=== PATIENT | male | born 1935 | race Caucasian/White ===

== ENCOUNTER 2017-09-07 09:19 | Outpatient (CLI) | payer MEDICARE ==
[2017-09-07] MEDS ORDERED: ISOVUE-370 76%-LOCM 1 ML ONE (13:26)
== END 2017-09-07 09:20 | disposition home or self-care (01) ==
LOC: BICCT 09:19
PROVIDERS: ATTEND Internal Medicine Cardiovascular Disease
DX: I71.9 Aortic aneurysm of unspecified site, without rupture (principal)
CPT/HCPCS: 71275; 82565

== ENCOUNTER 2018-01-31 17:24 | Inpatient (IN) | payer MEDICARE ==
[2018-01-31] MEDS ORDERED: Morphine 2 MG/ML SYRINGE ONE (18:34)
[2018-01-31] MEDS ORDERED: Ketorolac Tromethamine 30 MG/ML VIAL ONE (18:35)
[2018-01-31 18:51] LABS: #Lymphocytes 1.3 thou/uL (1.20-3.40); #Monocytes 0.7 thou/uL (0.11-0.59); #Neutrophils 9.4 thou/uL (1.40-6.50); %Eosinophils 0.2 % (0.0-10.0); %Monocytes 6.5 % (0.0-10.0); %Neutrophils 82.3 % (42.0-75.0); Hemoglobin 13.7 g/dL (14.0-18.0); Mean Corpuscular HGB CONC 34.7 g/dL (32.0-36.0); Mean Corpuscular Hemoglobin 33.3 pg (27.0-31.0); Mean Platelet Volume 6.9 fL (7.4-10.4); Platelet Count 188 thou/uL (130-400); RBC Distribution Width 11.8 % (11.5-14.5); White Blood Cell (WBC) Count 11.4 thou/uL (4.8-10.8)
[2018-01-31 19:00] LABS: INR-International Normal Ratio 1.2; PTT 35.8 SEC (22.9-36.1); Prothrombin Time 14.8 SEC (12.0-14.7)
[2018-01-31 19:08] LABS: ALT (SGPT) 19 U/L (8-55); AST (SGOT) 23 U/L (5-34); Alkaline Phosphatase 52 U/L (40-150); Anion Gap 10 mmol/L (10-20); BUN (Urea Nitrogen) 17 mg/dL (8.4-25.7); Bilirubin, Total 0.4 mg/dL (0.2-1.2); Calc. Creatinine Clearance 0 mL/min (70-130); Calcium 9.8 mg/dL (7.8-10.44); Carbon Dioxide 23 mmol/L (23-31); Chloride 108 mmol/L (98-107); Estimated GFR-MDRD 50; Globulin 2.7 g/dL (2.4-3.5); Glucose 109 mg/dL (83-110); Protein, Total 6.7 g/dL (5.8-8.1); Sodium 137 mmol/L (136-145)
--- NOTE | 2018-01-31 19:20 | RAD ---
LEFT HIP TWO VIEWS: 01/31/18 HISTORY: Fell with left hip pain. There is a left femoral neck fracture which is more of a subcapital type fracture. The bones appear d emineralized. There is some arthritic changes of the hip. IMPRESSION: Left femoral neck fracture. POS: SELMA
--- NOTE | 2018-01-31 19:21 | RAD ---
AP PELVIS: 01/31/18 HISTORY: Tripped and fell. The bones are demineralized. There are arthritic changes of the lower lumbar spine. The pelvic ring i s intact without evidence of fracture. There is a left femoral neck fracture present which is essenti ally nondisplaced. IMPRESSION: Left femoral neck fracture. POS: CAS
--- NOTE | 2018-01-31 19:29 | RAD ---
PORTABLE CHEST: 01/31/18 HISTORY: Tripped and fell. Left sided pain. Heart size is enlarged. The bones are demineralized. The lungs shows some chronic change. No infiltra melissa. No rib fractures. IMPRESSION: Cardiomegaly. POS: CAS
[2018-01-31] MEDS ORDERED: HYDROcodone/Acetaminophen 5/325 mg Tablet ONE (21:06)
[2018-01-31] MEDS ORDERED: Acetaminophen 325 MG TAB ONE ×2 (21:06→21:11)
[2018-01-31] MEDS ORDERED: traMADol HCl 50 MG TAB ONE (21:06)
[2018-01-31] MEDS ORDERED: Ondansetron PF 4 MG/2 ML Vial IVP PRN (21:12)
[2018-01-31] MEDS ORDERED: Dextrose 5% in Water 1,000 ML IV PRN (21:12)
[2018-01-31] MEDS ORDERED: HYDROcodone/Acetaminophen 10/325 mg Tablet PO PRN (21:12)
[2018-01-31] MEDS ORDERED: Dextrose 50% Abboject 50 ML SYRINGE SLOW IVP PRN (21:12)
[2018-01-31] MEDS ORDERED: traMADol HCl 50 MG TAB PO PRN (21:16)
[2018-01-31] MEDS: Sodium Chloride 0.9% 1,000 ML IV SCH (21:56)
[2018-01-31] MEDS: Morphine 4 MG/ML VIAL SLOW IVP PRN (21:56)
[2018-01-31] MEDS: traMADol HCl 50 MG TAB PO SCH (22:22)
[2018-01-31] MEDS: Acetaminophen 325 MG TAB PO SCH (22:22)
[2018-01-31 22:29] VITALS: BMI 29.5
--- NOTE | 2018-01-31 23:36 | HP ---
Referred by Dr. Michelet Quiñones in the emergency department. CONSULTING ORTHOPEDIST: Steve Garsia MD TRAUMA ATTENDING: Suzanne Martínez MD REASON FOR ADMISSION: Left femoral neck fracture. HISTORY OF PRESENT ILLNESS: Mr. Barbosa is an 82-year-old male who follows for Cardiology with Dr. Michael Prakash and primary care doctor, Dr. Michael Montgomery with a past medical history of intermittent atrial fibrillation, hyperlipidemia, hypothyroidism, and osteoarthritis, who was brought in by EMS today after a mechanical fall off the bottom rungs of a ladder, falling on to a hard sidewalk on his left side at home. The patient had an onset of left hip pain. EMS was called. He is anticoagulated on Eliquis, last dose was early this morning, but denies hitting his head, denies any loss of consciousness, denies any neck pain. The patient was found to have a left femoral neck fracture. His only complaint is the left hip pain. Dr. Garsia was consulted for Orthopedics and planned for operative repair in the morning. The patient has been given 2 mg of morphine, a total of 100 mcg of fentanyl and lab work was reviewed. He has a slight bump in his creatinine; however, his creatinine was on the high normal side on previous visits here. The patient denies any chest pain. No shortness of air. No nausea. No vomiting. No recent fever. Did not get dizzy prior to the fall, states that he missed his last step. I evaluated Mr. Barbosa in the emergency department at the bedside with his . Again, states mechanical fall happened approximately 1430 hours today. The patient is in slight pain, but only complains of the hip pain. I reviewed his records, imaging, and laboratory data from today. Of note, he did have Cardiology clearance in August of this year for a procedure at [facility] to evaluate and was cleared at that time. REVIEW OF SYSTEMS: Pertinent positives and negatives per the HPI. Otherwise, is regarded as negative. PAST MEDICAL HISTORY: 1. Intermittent atrial fibrillation. 2. Hyperlipidemia. 3. Hypothyroidism. 4. Small skin cancer about the face. 5. Osteoarthritis. PAST SURGICAL HISTORY: 1. Skin cancer excision about the right nares. 2. Cholecystectomy. 3. Appendectomy. MEDICATIONS: 1. Eliquis 5 mg. 2. Cardizem 360 mg ER. 3. Crestor 5 mg daily. 4. Finasteride 5 mg daily. 5. Synthroid 25 mcg daily. SOCIAL HISTORY: The patient is a former smoker, quitting in 1974 with no history of COPD. Lives in [place] with his . Socially drinks alcohol, but has never withdrawn and denies any illicit drugs. 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 ALLERGIES: HE HAS NO KNOWN DRUG ALLERGIES. FAMILY HISTORY: Significant for CVA, causing of his father at age 67. His mother of old age at 96 years old. PHYSICAL EXAMINATION: VITAL SIGNS: Temperature is 98.2, blood pressure is 149/77, heart rate is 64, respiratory rate is 18, and he is saturating 94% on room air. GENERAL: He is an 82-year-old male, sitting up in bed, in no acute distress. Nontoxic appearing. HEENT: Normocephalic and atraumatic. Trachea is midline. No JVD is appreciated. Pupils are equal and midline. RESPIRATORY: Equal rise and fall bilateral. Breath sounds are clear to auscultation in upper and lower bilaterally. CARDIOVASCULAR: Regular rate and rhythm. No murmurs appreciated. Strong pulses. Trace edema about the ankles, only nonpitting. ABDOMEN: Soft and nontender. PELVIS: Stable. Does have left hip pain noted. MUSCULOSKELETAL: He is able to move all of his extremities, had sensation noted in all extremities, pain about the left hip. NEURO: Alert and oriented to person, place, time, and event. No gross deficits are appreciated. Again, denies headache or loss of consciousness. SKIN: [place], warm and dry. DIAGNOSTIC DATA: A pelvis x-ray shows a left femoral neck fracture, a hip x-ray shows a left femoral neck fracture. Chest x-ray shows cardiomegaly without other infiltrates. LABORATORY DATA: From today, white blood cell count 11.4, platelets are 188, hemoglobin and hematocrit 13.7 and 39.3 respectively, slight leftward shift. PT is 14.8, INR is 1.2, and aPTT is 35.8. Chemistry; sodium is 137, potassium is 4.0, chloride is 108, CO2 is 23, BUN is 17, creatinine is 1.35, calcium is 9.8, glucose is 109, total bilirubin is 0.4, AST and ALT are 23 and 19 respectively, alkaline phosphatase is 52. An EKG shows a sinus rhythm at the rate of 65 with a left axis deviation, does have Q-waves noted in inferior waves, low voltage, no STEMI and intervals are okay. ASSESSMENT: 1. Left femoral neck fracture. 2. History of atrial fibrillation, on anticoagulation. 3. Acute traumatic pain. 4. Chronic kidney disease. 5. History of hyperlipidemia, hypothyroidism, and osteoarthritis. PLAN: 1. Admit to the surgery campos. 2. Pain control as needed. 3. Trial of bowel regimen. 4. Orthopedics has been consulted. Plan for operative repair tomorrow. 5. Hold Eliquis. His last dose was early in the morning on 01/31. 6. Continue Cardizem daily. 7. Continue Synthroid and Crestor. 8. N.p.o. after midnight, at which time, we will provide gentle fluids at 60 mL per hour for euvolemia for operative repair. 9. Diet, n.p.o except for medications after midnight. 10. Activity is bed rest until after surgery. 11. Full code. 12. Access of peripheral IVs. 13. Prophylaxis will be renally-dosed famotidine and SCDs, holding Eliquis for operative procedure. 14. Disposition is surgery campos. I have updated Mr. Barbosa at the bedside, answered all questions of himself and his . Orthopedics has been consulted and seen the patient in the emergency department and coordinated the care with the emergency department and this plan can be updated as needed. Job ID: [id number]
--- NOTE | 2018-02-01 02:42 | CON ---
DATE OF CONSULTATION: 01/31/2018 CHIEF COMPLAINT: Left hip pain. HISTORY OF PRESENT ILLNESS: Mr. Barbosa is an 82-year-old male, who was working on his house today, cleaning out gutters. He was on a ladder. Unfortunately, he lost his balance and fell. He landed on his left side. He had pain in the hip. He was unable to ambulate. His found him in the yard. He was taken to the emergency department by EMS. X-rays have demonstrated a femoral neck fracture. Orthopedics was consulted. The patient is currently resting comfortably. No acute distress. He is having pain in the left hip, but controlled at rest. No other injuries have been identified. He has been stable. PAST MEDICAL HISTORY: Positive for cardiac arrhythmia including atrial fibrillation. He reports he is no longer in atrial fibrillation however, previous hypothyroidism, GERD, hypertension. PAST SURGICAL HISTORY: Includes appendectomy, cholecystectomy, tonsillectomy, previous cardiac catheterization. PSYCHIATRIC HISTORY: Negative. SOCIAL HISTORY: The patient drinks alcohol occasionally. No smoking. No drug use. ALLERGIES: NO KNOWN DRUG ALLERGIES. MEDICATIONS: Include, 1. Eliquis, which he took early this morning. 2. Crestor. 3. Pantoprazole. 4. Diltiazem. 5. Finasteride. 6. Levothyroxine. IMAGING DATA: X-rays of the pelvis and left hip demonstrated displaced femoral neck fracture, which is acute. PHYSICAL EXAMINATION: VITAL SIGNS: The patient's vital signs are stable. Blood pressure is 146/56, pulse is 65, respiratory rate is 16, and temperature is 98.2. GENERAL: He is alert, lying supine, in no apparent distress. HEENT: Normocephalic and atraumatic. RESPIRATORY: Breathing comfortably. ABDOMEN: Soft, nontender, and nondistended. CARDIOVASCULAR: Pulses are palpable and regular peripherally. MUSCULOSKELETAL: The patient's left hip has pain with motion. He is resting in a flexed position. He is able to flex and extend the foot and ankle. He has a palpable dorsalis pedis pulse. Sensation is intact in the foot and ankle. IMPRESSION: Left femoral neck fracture in an elderly male. PLAN: At this point, the patient will be admitted to the hospital. He will need preoperative medical optimization. We will plan for surgical intervention tomorrow. I have reviewed risks and benefits with him. He wants to proceed with hemiarthroplasty of the hip. Goal of surgery is early mobilization to prevent complications of prolonged bedrest. He is aware of instability, infection, never or vascular injury, DVT, and others. We will restart his Eliquis postoperatively. He will have pain control tonight. He will have mechanical DVT prophylaxis as well as antibiotic prophylaxis. N.p.o. after midnight. Job ID: [id number]
[2018-02-01] MEDS: Acetaminophen 325 MG TAB PO SCH ×5 (04:31→20:46)
[2018-02-01] MEDS: traMADol HCl 50 MG TAB PO SCH ×5 (04:31→20:47)
[2018-02-01] MEDS: Morphine 4 MG/ML VIAL SLOW IVP PRN ×2 (04:42→09:58)
[2018-02-01] MEDS: Levothyroxine Sodium 25 MCG TAB PO SCH (05:07)
[2018-02-01 06:17] LABS: #Eosinphils 0.1 thou/uL (0.0-0.7); #Lymphocytes 1.2 thou/uL (1.20-3.40); #Monocytes 0.7 thou/uL (0.11-0.59); #Neutrophils 6.2 thou/uL (1.40-6.50); %Basophils 0.3 % (0.0-1.0); %Eosinophils 1.3 % (0.0-10.0); %Lymphocytes 14.6 % (21.0-51.0); %Monocytes 8.6 % (0.0-10.0); %Neutrophils 75.2 % (42.0-75.0); Hemoglobin 12.7 g/dL (14.0-18.0); Mean Corpuscular HGB CONC 34.9 g/dL (32.0-36.0); Mean Corpuscular Hemoglobin 33.4 pg (27.0-31.0); Mean Corpuscular Volume 95.8 fL (78.0-98.0); Mean Platelet Volume 6.8 fL (7.4-10.4); Platelet Count 164 thou/uL (130-400); RBC Distribution Width 11.8 % (11.5-14.5); Red Blood Cell (RBC) Count 3.81 mill/uL (4.70-6.10); White Blood Cell (WBC) Count 8.3 thou/uL (4.8-10.8)
[2018-02-01 06:37] LABS: Anion Gap 10 mmol/L (10-20); BUN (Urea Nitrogen) 15 mg/dL (8.4-25.7); Calc. Creatinine Clearance 75 mL/min (70-130); Calcium 9.3 mg/dL (7.8-10.44); Carbon Dioxide 25 mmol/L (23-31); Chloride 106 mmol/L (98-107); Estimated GFR-MDRD 63; Glucose 103 mg/dL (83-110); Potassium 3.9 mmol/L (3.5-5.1); Sodium 137 mmol/L (136-145)
[2018-02-01] MEDS ORDERED: Bupivacaine HCl 0.5%/Epinephrine 1:200,000/PF 30 ml Vial ONE (11:24)
[2018-02-01] MEDS ORDERED: Lidocaine 1% PF 5 ML VIAL ONE (11:36)
[2018-02-01] MEDS ORDERED: Glycopyrrolate 0.2 MG/ML 5 ML SYRINGE ONE (11:36)
[2018-02-01] MEDS ORDERED: PHENYLEPHRINE-NS 100 MCG/ML 10 ML SYRINGE ONE (11:36)
[2018-02-01] MEDS ORDERED: PROPOFOL 200 MG/20 ML VIAL ONE (11:36)
[2018-02-01] MEDS ORDERED: Ondansetron PF 4 MG/2 ML Vial ONE (11:36)
[2018-02-01] MEDS ORDERED: CEFAZOLIN/Water 2 GM/20 ML SYRINGE SLOW IVP SCH (12:00)
[2018-02-01] MEDS ORDERED: CEFAZOLIN 2 GM/50 ML-DEXTROSE 2 GM in Premix Bag 1 BAG IVPB SCH (12:00)
--- NOTE | 2018-02-01 12:26 | PRG ---
DATE OF SERVICE: 02/01/2018 SUBJECTIVE: The patient is resting comfortably in his bed this morning and is n.p.o. for possibility of surgery later today. The patient has reported good pain control and has no complaints at this time. No fevers or chills or any complaints, otherwise. OBJECTIVE: VITAL SIGNS: Blood pressure 165/77, pulse is 70, respiration rate 20, O2 saturation 94 on room air, and temperature 98.6. GENERAL: Alert and awake. No acute distress. HEENT: EOMI. Moist mucosal membranes. NECK: Trachea midline. RESPIRATORY: Equal chest rise. No cyanosis. CARDIOVASCULAR: No edema. Regular rate. NEUROLOGIC: No acute focal deficits. LABORATORY DATA: White blood cell count 8.3, hemoglobin 12.7, and hematocrit 36.5. Chemistries; sodium 137, potassium 3.9, BUN 15, and creatinine 1.11. ASSESSMENT: 1. Left femoral neck fracture. 2. History of atrial fibrillation, on anticoagulation. Last dose of Eliquis was yesterday morning. 3. Acute traumatic pain. 4. Chronic kidney disease. 5. History of hyperlipidemia, hypothyroidism, and osteoarthritis. PLAN: 1. Continue pain control. Plan for operative repair of femoral neck fracture today around lunchtime. 2. Continue Cardizem and other home medications. This patient was seen and evaluated by Dr. Rahman during morning rounds. The patient verbalized understanding and agreement with plan. Job ID: [id number]
[2018-02-01] MEDS ORDERED: Polyethylene Glycol 3350 17 GM Packet PO SCH (14:00)
[2018-02-01] MEDS ORDERED: CEFAZOLIN 2 GM/50 ML BAG ONE (14:11)
[2018-02-01] MEDS ORDERED: Midazolam HCl 2 mg/2 ml Vial ONE (14:22)
[2018-02-01] MEDS ORDERED: Fentanyl 100 MCG/2 ML VIAL ONE ×2 (14:22→14:42)
[2018-02-01] MEDS ORDERED: Senokot 8.6 MG TAB PO SCH (17:00)
[2018-02-01] MEDS: Finasteride 5 MG TAB PO SCH (17:33)
[2018-02-01] MEDS: Polyethylene Glycol 3350 17 GM Packet PO SCH (17:33)
[2018-02-01] MEDS: Famotidine 20 MG TAB PO SCH (17:33)
[2018-02-01] MEDS: Sodium Chloride 0.9% 1,000 ML IV SCH (17:38)
[2018-02-01] MEDS: CEFAZOLIN 2 GM/50 ML BAG IV SCH ×2 (17:40→23:22)
--- NOTE | 2018-02-01 20:48 | RAD ---
LEFT HIP ONE VIEW LATERAL: 02/01/18 HISTORY: Postop. Total hip prosthesis is in good position without evidence of fracture. IMPRESSION: Placement of a total hip prosthesis. POS: SELMA
--- NOTE | 2018-02-01 20:48 | RAD ---
AP PELVIS: 02/01/18 HISTORY: Postop. A left hip prosthesis has been placed which appears in good position. The bones are demineralized. IMPRESSION: Placement of left hip prosthesis. POS: SELMA
[2018-02-01] MEDS ORDERED: Rosuvastatin 5 MG TAB PO SCH (21:00)
--- NOTE | 2018-02-01 23:43 | OP ---
DATE OF PROCEDURE: 02/01/2018 PROCEDURE PERFORMED: Left hip hemiarthroplasty. PREOPERATIVE DIAGNOSIS: Left femoral neck fracture. POSTOPERATIVE DIAGNOSIS: Left femoral neck fracture. COMPLICATIONS: None. ESTIMATED BLOOD LOSS: 150 mL. ANESTHESIA: General plus local. IMPLEMENTATION CONSULTANT: Rogelio Miner PA-C IMPLANTS: DePuy Basic Press-Fit Mower stem size 8, size 57 mm bipolar shell, size +5 femoral head. INDICATIONS: Mr. Barbosa is an 82-year-old male who fell. He fractured his left femoral neck. He was indicated for hemiarthroplasty of the hip to restore function and promote mobilization. Risks were reviewed in detail. He elected to proceed with the operation. Risks to include, infection, pain, scarring, neurovascular injury, DVT, instability, and others. DESCRIPTION OF PROCEDURE: Mr. Barbosa was identified in the preoperative holding area. His correct extremity was marked. He was carried to the operating room. He was positioned supine. General anesthesia was induced. A multidisciplinary time-out was performed. The left lower extremity was prepped and draped in sterile fashion. We began the procedure with posterior approach to the hip. We dissected down through the subcutaneous tissues. The fascia was split. We opened the fascia and evaluated the short external rotators. These were subperiosteally divided from the proximal femur. We then performed a capsulotomy. At this point, we dislocated the femoral head. We removed the broken fragments in the femoral head. We performed a new osteotomy in the femoral neck. At this point, we began preparation of the proximal femur. We entered the intramedullary canal. We then reamed and broached up to a size 8; this gave a good stable fit. At this point, after through irrigation, we trialed. We decided on a +5, 57 mm bipolar shell. This gave good stability throughout the range of motion and equal leg lengths. At this point, we removed our trial components. We thoroughly irrigated with copious lavage. We then placed our final implants and reduced the hip once more. Again after checking stability, we began closure. We closed the deep tissues with #5 Ethibond suture, followed by #2 Vicryl suture, 2-0 and andrea for the skin. A sterile dressing was applied. Job ID: [id number]
[2018-02-02] MEDS: traMADol HCl 50 MG TAB PO SCH ×4 (04:08→21:40)
[2018-02-02] MEDS: Acetaminophen 325 MG TAB PO SCH ×4 (04:08→21:40)
[2018-02-02 06:01] LABS: Hemoglobin 11.5 g/dL (14.0-18.0); Mean Corpuscular HGB CONC 35.1 g/dL (32.0-36.0); Mean Corpuscular Hemoglobin 33.7 pg (27.0-31.0); Mean Platelet Volume 7.2 fL (7.4-10.4); Platelet Count 146 thou/uL (130-400); RBC Distribution Width 11.8 % (11.5-14.5); Red Blood Cell (RBC) Count 3.42 mill/uL (4.70-6.10); White Blood Cell (WBC) Count 10.3 thou/uL (4.8-10.8)
[2018-02-02] MEDS: Levothyroxine Sodium 25 MCG TAB PO SCH (06:29)
[2018-02-02] MEDS: Senokot 8.6 MG TAB PO SCH ×2 (09:11→21:39)
[2018-02-02] MEDS: Finasteride 5 MG TAB PO SCH (09:12)
[2018-02-02] MEDS: Famotidine 20 MG TAB PO SCH (09:12)
[2018-02-02] MEDS: Glycerin Adult Supp. (12 ct jar) PR SCH (09:14)
[2018-02-02] MEDS: Polyethylene Glycol 3350 17 GM Packet PO SCH (14:59)
--- NOTE | 2018-02-02 17:08 | PRG ---
DATE OF SERVICE: 02/02/2018 SUBJECTIVE: The patient is hospital day 2 mechanical fall. Postop day 1 hemiarthroplasty of the left hip. The patient is resting in bed. Reports feeling tired, but easily arousable The patient reports good pain control and no other complaints at this time. He did have urinary retention overnight and resolved with an in and out cath. The patient reports not having a bowel movement since hospital stay. The patient did participate in physical therapy and was able to sit up on the side of the bed without any difficulty. OBJECTIVE: VITAL SIGNS: Blood pressure 145/81, pulse 98, respirations 16, SpO2 95% on 2 L nasal cannula, temperature 98.3. GENERAL: The patient is awake, alert, in no distress. RESPIRATORY: With equal chest rise. No respiratory distress. No cyanosis. CARDIOVASCULAR: No edema. Regular rate. EXTREMITIES: The patient moves all extremities. NEUROLOGIC: There are no acute focal deficits. LABORATORY DATA: WBC 10.3, RBC 3.42, hemoglobin of 11.5, hematocrit 32.9. ASSESSMENT: 1. Mechanism of injury, status post mechanical fall from a ladder at the lowest level. 2. Left femoral neck fracture, status post left hemiarthroplasty. 3. History of atrial fibrillation, on anticoagulation at home, last dose was 2 days ago before surgery. 4. Acute traumatic pain. 5. Urinary retention with the history of benign prostatic hyperplasia. 6. History of hyperlipidemia, hyperthyroidism, and osteoarthritis. 7. Chronic kidney disease. PLAN: 1. Continue pain control. 2. Continue PT/OT. We will restart all of his home medications. We will restart his Eliquis per Ortho tomorrow. Discontinue IV fluids and keep the patient saline locked. We will restart home medications for his BPH. discharge to rehab tomorrow. Continue bowel regimen and pain regimen. The patient was discussed with attending surgeon. Job ID: [id number] [facility]ITAL[facility]go[facility]
[2018-02-02] MEDS ORDERED: Rosuvastatin 5 MG TAB PO SCH (21:00)
[2018-02-03] MEDS: Glycerin Adult Supp. (12 ct jar) PR SCH (02:07)
[2018-02-03] MEDS: traMADol HCl 50 MG TAB PO SCH ×3 (02:34→16:47)
[2018-02-03] MEDS: Acetaminophen 325 MG TAB PO SCH ×3 (02:35→16:48)
[2018-02-03] MEDS ORDERED: Levothyroxine Sodium 25 MCG TAB PO SCH (06:00)
[2018-02-03 06:26] LABS: #Eosinphils 0.1 thou/uL (0.0-0.7); #Monocytes 1.2 thou/uL (0.11-0.59); %Basophils 0.2 % (0.0-1.0); %Eosinophils 1.3 % (0.0-10.0); %Lymphocytes 19.1 % (21.0-51.0); %Monocytes 11.8 % (0.0-10.0); %Neutrophils 67.6 % (42.0-75.0); Hemoglobin 9.8 g/dL (14.0-18.0); Mean Corpuscular HGB CONC 34.5 g/dL (32.0-36.0); Mean Corpuscular Hemoglobin 33.4 pg (27.0-31.0); Mean Corpuscular Volume 96.7 fL (78.0-98.0); Platelet Count 124 thou/uL (130-400); RBC Distribution Width 11.7 % (11.5-14.5); Red Blood Cell (RBC) Count 2.95 mill/uL (4.70-6.10); White Blood Cell (WBC) Count 10.3 thou/uL (4.8-10.8)
[2018-02-03 06:51] LABS: Anion Gap 9 mmol/L (10-20); BUN (Urea Nitrogen) 15 mg/dL (8.4-25.7); Calc. Creatinine Clearance 84 mL/min (70-130); Carbon Dioxide 24 mmol/L (23-31); Chloride 104 mmol/L (98-107); Estimated GFR-MDRD 72; Glucose 113 mg/dL (83-110); Magnesium 2.4 mg/dL (1.6-2.6); Phosphorus 2.1 mg/dL (2.3-4.7); Potassium 3.8 mmol/L (3.5-5.1); Sodium 133 mmol/L (136-145)
[2018-02-03] MEDS ORDERED: Doxazosin 2 MG TAB PO SCH (09:00)
[2018-02-03] MEDS ORDERED: Triamterene/Hydrochlorothiazide 37.5 mg/25 mg Tablet PO SCH (09:00)
[2018-02-03] MEDS ORDERED: Finasteride 5 MG TAB PO SCH (09:00)
[2018-02-03] MEDS: Senokot 8.6 MG TAB PO SCH (09:11)
--- NOTE | 2018-02-03 14:07 | EKG ---
Test Reason : FALL Blood Pressure : / mmHG Vent. Rate : 065 BPM Atrial Rate : 065 BPM P-R Int : 172 ms QRS Dur : 078 ms QT Int : 408 ms P-R-T Axes : -15 -30 -04 degrees QTc Int : 424 ms Normal sinus rhythm Left axis deviation Inferior infarct , age undetermined Abnormal ECG Confirmed by RIVKA RAMIREZ, BOGDAN Mercedes ([id number]), primer expeditor and drier JONA ESPINOSA ([id number]) on 02/03/2018 2:07:37 PM Referred By: Confirmed By:BOGDAN TINEO MD
[2018-02-03 16:28] VITALS: BP 99/60; TEMP 98
[2018-02-03] MEDS: Polyethylene Glycol 3350 17 GM Packet PO SCH (16:48)
--- NOTE | 2018-02-04 18:54 | DIS ---
DATE OF ADMISSION: 01/31/2018 DATE OF DISCHARGE: 02/03/2018 DISCHARGE ATTENDING: Romario Isbell MD. CONSULT: Orthopedic Surgery. PROCEDURES PERFORMED: 1. On 01/31/2018, hip x-ray. Impression, left femoral neck fracture. 2. On 01/31/2018, chest x-ray. Impression, cardiomegaly, no infiltrates, no rib fractures. 3. On 01/31/2018, EKG. Impression, normal sinus rhythm with left axis deviation. 4. On 02/01/2018, left hip 1-view. Impression, placement of a total hip prosthesis. 5. On 02/01/2018, pelvis x-ray. Impression, placement of left hip prosthesis. PRIMARY DIAGNOSIS: Left femoral neck fracture. SECONDARY DIAGNOSES: 1. History of atrial fibrillation, previously on anticoagulation. 2. History of hyperlipidemia. 3. Hypothyroidism. 4. Osteoarthritis. DISCHARGE MEDICATIONS: 1. Acetaminophen 650 mg p.o. q.6 as needed for pain. 2. Eliquis 5 mg p.o. daily. 3. Diltiazem 24-hour extended release 360 mg p.o. daily. 4. Cardura 2 mg p.o. daily. 5. Finasteride 5 mg tablet p.o. daily. 6. Synthroid 25 mcg p.o. daily. 7. Protonix 40 mg p.o. daily. 8. Crestor 5 mg p.o. daily. 9. Silver sulfadiazine 25 g cream apply dermal daily. 10. Ultram 50 mg q.6 hours as needed for pain. 11. Tramadol 50 mg p.o. q.6 hours as scheduled. 12. Dyazide 37.5 mg p.o. daily. There were no discontinued home medications. HISTORY OF PRESENT ILLNESS AND HOSPITAL COURSE: This is an 82-year-old gentleman, who is followed by Dr. Prakash with Cardiology and primary care physician, Dr. Montgomery. He has a past medical history of intermittent atrial fibrillation, hyperlipidemia, hypothyroidism, and osteoarthritis, who was brought in to the ER on 01/31/2018, after a mechanical fall off the bottom step of a ladder, falling onto a hard sidewalk onto his left side. The patient had a sudden onset of left hip pain. EMS was called, and the patient was taken to the ER. The patient was anticoagulated on Eliquis, and his last dose was the morning of admission date. The patient denied any loss of consciousness or hitting his head. He was found to have a left femoral neck fracture. Dr. Garsia was consulted for Orthopedics, and operative repair was obtained on 02/01/2018. He was noted to have a slight elevation in creatinine on admission, but this appeared to be on his high normal side according to previous visits. The patient denied getting dizzy prior to falling. The patient's pain remained well controlled postoperatively. The patient's Eliquis was stopped prior to surgery and was recommended to be restarted the day after discharge. The patient did have some urinary retention overnight postsurgery and had to be in and out cathed. The patient's vital signs remained stable throughout the hospital stay and on the day of discharge. The exam was unremarkable including cardiopulmonary and GI exam. The patient was deemed stable for discharge to rehab for continued physical therapy and occupational therapy. Dr. Isbell evaluated the patient on the day of discharge. DISPOSITION: Stable. DISCHARGE INSTRUCTIONS: LOCATION: Rehab. DIET: Regular diet. ACTIVITY: Orthopedic limitations. Weightbearing as tolerated. FOLLOWUP: Follow up with primary care physician, Dr. Montgomery in 14 days. Also, follow up with Dr. Garsia, Orthopedic Surgery in 14 days. Call to arrange appointment. Job ID: [id number] MTDD
== END 2018-02-03 17:32 | DRG 470 ==
LOC: ERS 17:24 → SURG A 18:30
PROVIDERS: ADMIT Orthopaedic Surgery; ATTEND Orthopaedic Surgery
PROC: 0SRS01A Replacement of Left Hip Joint, Femoral Surface with Metal Synthetic Substitute, Uncemented, Open Approach (ICD-10-PCS; principal; 2018-02-01)
DX: S72.002A Fracture of unspecified part of neck of left femur, initial encounter for closed fracture (principal); W11.XXXA Fall on and from ladder, initial encounter; Y92.007 Garden or yard of unspecified non-institutional (private) residence as the place of occurrence of the external cause; I48.91 Unspecified atrial fibrillation; E78.5 Hyperlipidemia, unspecified; E03.9 Hypothyroidism, unspecified; M19.90 Unspecified osteoarthritis, unspecified site; N18.9 Chronic kidney disease, unspecified; R33.9 Retention of urine, unspecified; Z79.01 Long term (current) use of anticoagulants; Z85.828 Personal history of other malignant neoplasm of skin; Z87.891 Personal history of nicotine dependence; Z90.49 Acquired absence of other specified parts of digestive tract; Z82.3 Family history of stroke
CPT/HCPCS: 36415; 71045; 72170; 80048; 80053; 83735; 84100; 85025; 85027; 85610; 85730; 93005; 96374; 96375; G0390; G8978-GP-CM; G8979-GP-CK; G8987-GO-CL; G8988-GO-CJ; J0670; J1885; J2001; J2250; J2270; J2405; J2704; J3010

== ENCOUNTER → 2019-03-11 | Day surgery (SDC) | payer MEDICARE ==
[2019-03-08 12:43] VITALS: BMI 28.0
[~2019-03-11] MED LIST: Fentanyl 100 MCG/2 ML VIAL ONE; HYDROcodone/Acetaminophen 5/325 mg Tablet ONE; Ondansetron PF 4 MG/2 ML Vial ONE; PROPOFOL 200 MG/20 ML VIAL ONE; Rocuronium Bromide 10 MG/ML (10ML VIAL) ONE; Sodium Chloride 0.9% 100 ML ONE; cefTRIAXone\\ROCEPHIN 2 GM VIAL ONE; ePHEDrine/0.9% NaCl/PF SYRINGE 50 mg/10 ml ONE
[2019-03-11 08:05] LABS: #Eosinphils 0.1 thou/uL (0.0-0.7); #Lymphocytes 2.1 thou/uL (1.20-3.40); #Monocytes 0.7 thou/uL (0.11-0.59); #Neutrophils 2.9 thou/uL (1.40-6.50); %Basophils 0.2 % (0.0-1.0); %Eosinophils 0.9 % (0.0-10.0); %Lymphocytes 36.7 % (21.0-51.0); %Monocytes 11.9 % (0.0-10.0); %Neutrophils 50.2 % (42.0-75.0); Hemoglobin 13.7 g/dL (14.0-18.0); Mean Corpuscular HGB CONC 34.6 g/dL (32.0-36.0); Mean Corpuscular Hemoglobin 33.2 pg (27.0-31.0); Mean Platelet Volume 6.5 fL (7.4-10.4); Platelet Count 188 thou/uL (130-400); RBC Distribution Width 12.4 % (11.5-14.5); Red Blood Cell (RBC) Count 4.12 mill/uL (4.70-6.10); White Blood Cell (WBC) Count 5.8 thou/uL (4.8-10.8)
[2019-03-11 08:08] LABS: Prothrombin Time 13.2 SEC (12.0-14.7)
[2019-03-11 08:24] LABS: Anion Gap 11 mmol/L (10-20); BUN (Urea Nitrogen) 18 mg/dL (8.4-25.7); Calc. Creatinine Clearance 59 mL/min (70-130); Carbon Dioxide 24 mmol/L (23-31); Chloride 111 mmol/L (98-107); Estimated GFR-MDRD 52; Glucose 100 mg/dL (83-110); Sodium 142 mmol/L (136-145)
--- NOTE | 2019-03-11 10:25 | OP ---
DATE OF PROCEDURE: 03/11/2019 PREOPERATIVE DIAGNOSIS: Bladder stone. POSTOPERATIVE DIAGNOSIS: Bladder stone. PROCEDURES PERFORMED: 1. Cystoscopy. 2. Laser lithotripsy of bladder stones. ANESTHETIC: General. ESTIMATED BLOOD LOSS: Minimal. DRAINS PLACED: 18-Burmese Rajan catheter. FINDINGS: There is a 2 cm bladder stone, broken up with the holmium laser fiber and all pieces Ellik'd and evacuated out. DESCRIPTION OF PROCEDURE: After obtaining written and verbal consent from the patient after receiving IV antibiotics, documenting normal preoperative blood work, he was taken to the operating suite. He was placed in the supine position on the treatment table. PlexiPulses were placed on his lower extremities and turned on. He was given a general anesthetic and oral obturator intubation. He was placed in the dorsal lithotomy position. He was sterilely prepped and draped. Cystoscopy was performed with a 22-Burmese sheath. This was well lubricated, passed under direct vision through the male urethra into the urinary bladder with aid of a 30-degree lens of video camera and monitor. The bladder was examined with both 30 and 70-degree lens with the findings above. There were 2 ureteral orifices with clear efflux. No evidence of bladder tumor, out foreign body, or stone. There was a large prostate. There was a 2 cm bladder stone. No bladder tumors or foreign bodies apart from the stone. We then brought in a holmium laser fiber and used this to break up the stone into smaller and smaller fragments, then used the Ellik evacuator multiple times to get these fragments out, reinspecting a couple of times to be sure we got all the stones out. Once this was completed, an 18-Burmese Rajan catheter was placed, 20 mL placed in balloon. It was hand irrigated. It was clear to light pink. It was hooked up to a drainage bag. He at this point was awakened, extubated, and taken by stretcher to recovery room. Job ID: [id number]
--- NOTE | 2019-03-13 13:36 | EKG ---
Test Reason : PREOP Blood Pressure : / mmHG Vent. Rate : 057 BPM Atrial Rate : 057 BPM P-R Int : 202 ms QRS Dur : 098 ms QT Int : 442 ms P-R-T Axes : 025 -27 022 degrees QTc Int : 430 ms Sinus bradycardia Low voltage QRS Cannot rule out Anterior infarct (cited on or before 31-JAN-2018) Abnormal ECG When compared with ECG of 31-JAN-2018 18:39, No significant change was found Confirmed by JER TAYLOR (2) on 03/13/2019 1:35:50 PM Referred By: JORDEN Confirmed By:JER TAYLOR
[2019-03-22 11:11] LABS: CA Oxalate Dihydrate 30 % (.); CA Oxalate Monohydrate 60 % (.); CA Phosphate 10 % (.); Color Brown (.); Comment Note: (.)
== END ==
LOC: SDC 07:17
PROVIDERS: ATTEND Urology
PROC: 0TCB8ZZ Extirpation of Matter from Bladder, Via Natural or Artificial Opening Endoscopic (ICD-10-PCS; principal; 2019-03-11)
DX: N21.0 Calculus in bladder (principal); I10 Essential (primary) hypertension; I48.91 Unspecified atrial fibrillation; N40.1 Benign prostatic hyperplasia with lower urinary tract symptoms; Z79.01 Long term (current) use of anticoagulants; Z79.899 Other long term (current) drug therapy; Z91.041 Radiographic dye allergy status
CPT/HCPCS: 36415; 80048; 82365; 85025; 85610; 85730; 88300; 93005; 93010; J0696; J2405; J2704; J3010; J3490

== ENCOUNTER 2019-07-24 16:18 | Observation (INO) | payer MEDICARE ==
[~2019-07-24 16:18] MED LIST changes: -Fentanyl 100 MCG/2 ML VIAL ONE; -HYDROcodone/Acetaminophen 5/325 mg Tablet ONE; +Lidocaine 1% PF 5 ML VIAL ONE; -Ondansetron PF 4 MG/2 ML Vial ONE; -Rocuronium Bromide 10 MG/ML (10ML VIAL) ONE; -Sodium Chloride 0.9% 100 ML ONE; -cefTRIAXone\\ROCEPHIN 2 GM VIAL ONE; -ePHEDrine/0.9% NaCl/PF SYRINGE 50 mg/10 ml ONE
[2019-07-24] MEDS ORDERED: Morphine 4 MG/ML VIAL ONE ×2 (17:32→19:16)
[2019-07-24] MEDS ORDERED: Ondansetron PF 4 MG/2 ML Vial ONE (17:55)
[2019-07-24 18:15] LABS: #Basophils 0.1 thou/uL (0.0-0.2); #Lymphocytes 2.5 thou/uL (1.20-3.40); #Monocytes 1.4 thou/uL (0.11-0.59); #Neutrophils 10.5 thou/uL (1.40-6.50); %Basophils 0.5 % (0.0-1.0); %Eosinophils 0.1 % (0.0-10.0); %Lymphocytes 17.2 % (21.0-51.0); %Monocytes 9.7 % (0.0-10.0); %Neutrophils 72.4 % (42.0-75.0); Hemoglobin 17.9 g/dL (14.0-18.0); Mean Corpuscular HGB CONC 32.7 g/dL (32.0-36.0); Mean Corpuscular Hemoglobin 31.9 pg (27.0-31.0); Mean Corpuscular Volume 97.3 fL (78.0-98.0); Mean Platelet Volume 7.2 fL (7.4-10.4); Platelet Count 212 thou/uL (130-400); RBC Distribution Width 11.8 % (11.5-14.5); White Blood Cell (WBC) Count 14.5 thou/uL (4.8-10.8)
[2019-07-24 18:20] LABS: Bacteria/HPF 4+ HPF (None Seen); Bilirubin Negative (Negative); Blood, Urine 3+ (Negative); Clarity Extra Turbid (Clear); Glucose, Urine (Dipstick) Normal (Negative); Leukocyte 75 Leu/uL (Negative); Nitrite Negative (Negative); Protein, Urine (Dipstick) 100 mg/dL (Neg-Trace); RBC/HPF Greater than 50 HPF (0-3); Squamous Epithelial 0-3 HPF (0-3); Urobilinogen Normal mg/dL (Less than 2); WBC/HPF Greater than 50 HPF (0-3)
[2019-07-24 18:24] LABS: ALT (SGPT) 11 U/L (8-55); AST (SGOT) 18 U/L (5-34); Albumin 4.8 g/dL (3.4-4.8); Alkaline Phosphatase 65 U/L (40-110); Anion Gap 16 mmol/L (10-20); BUN (Urea Nitrogen) 26 mg/dL (8.4-25.7); Bilirubin, Total 0.8 mg/dL (0.2-1.2); Calc. Creatinine Clearance 0 mL/min (70-130); Calcium 11.1 mg/dL (7.8-10.44); Carbon Dioxide 24 mmol/L (23-31); Chloride 102 mmol/L (98-107); Estimated GFR-MDRD 43; Globulin 3.3 g/dL (2.4-3.5); Glucose 101 mg/dL (83-110); Potassium 4.1 mmol/L (3.5-5.1); Protein, Total 8.1 g/dL (5.8-8.1); Sodium 138 mmol/L (136-145)
[2019-07-24] MEDS ORDERED: cefTRIAXone\\ROCEPHIN 2 GM VIAL ONE (18:44)
[2019-07-24] MEDS ORDERED: Iopamidol 50 ML FS ONE (19:50)
[2019-07-24] MEDS ORDERED: Fentanyl 100 MCG/2 ML VIAL ONE (20:10)
[2019-07-24] MEDS ORDERED: PHENYLEPHRINE-NS 100 MCG/ML 10 ML SYRINGE ONE (20:10)
[2019-07-24] MEDS ORDERED: Phenylephrine 10 MG/ML VIAL ONE (20:10)
--- NOTE | 2019-07-24 20:57 | CT ---
CT ABDOMEN AND PELVIS PERFORMED WITHOUT CONTRAST ENHANCEMENT: 07/24/19 HISTORY: Right flank pain. The lung bases shows some atelectatic change and some chronic appearing changes. The liver, spleen, and pancreas regions appear unremarkable given the limitations of a noncontrast st udy. Gallbladder has been removed. Right and left adrenal glands are normal. Hypodensity in the upper pole of the right kidney is statis tically most likely a cyst. There are several punctate right renal calculi and two small nonobstructi ng left renal calculi. There is also moderate right sided hydronephrosis and hydroureter related to a 6 mm distal right ureteral calculus located just proximal to the right ureterovesical junction. The re is no significant periaortic or mesenteric adenopathy. CT OF PELVIS PERFORMED WITHOUT CONTRAST ENHANCEMENT: No adenopathy, mass or free fluid. The patient has a history of an appendectomy. IMPRESSION: 1. Moderate right sided hydronephrosis and hydroureter related to a 6 mm distal right ureteral c alculus located approximately 1 cm proximal to the right ureterovesical junction. 2. Bilateral punctate renal calculi also incidentally noted. POS: ISABELLE
[2019-07-24] MEDS ORDERED: Ondansetron HCl/PF 4 MG/2 ML Vial IVP PRN (21:12)
[2019-07-24] MEDS ORDERED: Promethazine HCl 25 MG/ML VIAL IM PRN (21:12)
[2019-07-24] MEDS ORDERED: Promethazine HCl 25 MG/ML VIAL SLOW IVP PRN (21:12)
--- NOTE | 2019-07-24 21:54 | RAD ---
RETROGRADE PYELOGRAM; 07/24/19 HISTORY: Stent, stones. FINDINGS: Multiple images demonstrate placement of a right double-J ureteral stent. The renal collecting system is not well opacified/assessed on this exam. IMPRESSION: Right double-J ureteral stent placement. POS: SJDI
[2019-07-24 22:30] VITALS: BMI 28.6
[2019-07-24] MEDS ORDERED: Acetaminophen 325 MG TAB PO PRN (23:05)
[2019-07-24] MEDS ORDERED: Acetaminophen 650 MG Suppository PR PRN (23:05)
[2019-07-24] MEDS ORDERED: Ondansetron PF 4 MG/2 ML Vial IVP PRN (23:05)
--- NOTE | 2019-07-24 23:32 | PDOC.HHP ---
Hospitalist HPI - History of Present Illness Right-sided back pain and blood in urine History of Present Illness: Patient presented to the ED today after having several days of intermittent right flank pain that began to worse yesterday. He had also been noted to have darkening of his urine with intermittent blood tinged urine. His pain worsened to an 8/10 in severity and began to radiating from the right flank, wraping around the front to the right groin. No recent fevers or chills. He has a known history of stones in his bladder but has never required stenting in the past. Per ED notes the patient was actually referred to the ER by Dr. Stockton, his Urologist. Of note patient with history of Afib and on Eliquis. Last dose was this morning. Evening and future doses held given hematuria. EKG done showed NSR. ED Course: While he was in the ED he was seen by Urology and recommended cystocopy with stent placement. He has not returned from PACU and states his pain is much improved and currently a 4/10 in severity. He felt nauseated on arrival to the floor but it has settled with anti-emetics given. He had a UA done showing extra turbid appearance, dark brown in color 75 leukocytes, neg nitrities, 100 protein, 3+ blood, RBC >50, WBC >50. Bacteria 4+ BUN 26, Creat 1.55, GFR 43. Ca+ 11.1 otherwise CMP unremarkable. WCC 14.5, Hgb 17.0, Hct 54.5, Platelets 212. Started on IV antibiotics and urine culture sent. Given morphine for pain 4 mg x 2. Hospitalist ROS - Review of Systems Constitutional: denies: fever, chills, sweats, weakness, malaise, other Eyes: denies: pain, vision change, conjunctivae inflammation, eyelid inflammation, redness, other ENT: denies: ear pain, ear discharge, nose pain, nose discharge, nose congestion , mouth pain, mouth swelling, throat pain, throat swelling, other Respiratory: denies: cough, dry, shortness of breath, hemoptysis, SOB with excertion, pleuritic pain, sputum, wheezing, other Cardiovascular: denies: chest pain, palpitations, orthopnea, paroxysmal noc. dyspnea, edema, light headedness, other Gastrointestinal: reports: nausea. denies: vomiting, abdominal pain, diarrhea, constipation, melena, hematochezia Genitourinary: reports: frequency (since procedure), hematuria, other (right flank/groin pain, resolving). denies: dysuria, incontinence, retention Musculoskeletal: denies: neck pain, shoulder pain, arm pain, back pain, hand pain, leg pain, foot pain, other Skin: denies: rash, lesions, claudia, bruising, other Neurological: denies: weakness, numbness, incoordination, change in speech, confusion, seizures, other - Medication Medications: ALLERGIES: No known drug allergies. CURRENT MEDICATIONS: Hospitalist History - Past Medical History Source: patient, family () Cardiac: reports: AFIB, HTN, Hyperlipidemia Gastrointestinal: reports: GERD Endocrine: reports: Hypothyroidism Dermatology: reports: Other (Skin cancer) - Past Surgical History Past Surgical History: reports: Appendectomy, Cholecystectomy, Total Hip Replacement (left), Tonsillectomy Other Surgical History: Cystoscopy with ureteral stent placement (right sided) - Social History Smoking Status: Former smoker Alcohol: reports: Occassional (a glass of wine every Monday) Drugs: reports: none Living Situation: With Family Activity level: uses cane/walker - Exam General Appearance: NAD, awake alert Eye: PERRL, anicteric sclera ENT: normocephalic atraumatic, no oropharyngeal lesions, moist mucosa Neck: supple, symmetric, no lymphadenopathy Heart: RRR, normal peripheral pulses Respiratory: CTAB, no wheezes, no rales, no ronchi, normal chest expansion Gastrointestinal: soft, non-distended, tender to palpation (minimal discomfort in right flank/RLQ region) Extremities: no edema Skin: normal turgor, no lesions, no rashes Neurological: cranial nerve grossly intact Musculoskeletal: normal tone, normal strength Psychiatric: normal affect, normal behavior, A&O x 3 Psychiatric - other findings: Hard of hearing and known to have dementia Hospitalist Results - Labs Result Diagrams: 07/24/19 17:34 07/24/19 17:34 Lab results: WBC 14.5 thou/uL (4.8-10.8) H 07/24/19 17:34 Hgb 17.9 g/dL (14.0-18.0) 07/24/19 17:34 Hct 54.5 % (42.0-52.0) H 07/24/19 17:34 MCV 97.3 fL (78.0-98.0) 07/24/19 17:34 Plt Count 212 thou/uL (130-400) 07/24/19 17:34 Neutrophils % 72.4 % (42.0-75.0) 07/24/19 17:34 Sodium 138 mmol/L (136-145) 07/24/19 17:34 Potassium 4.1 mmol/L (3.5-5.1) 07/24/19 17:34 Chloride 102 mmol/L (98-107) 07/24/19 17:34 Carbon Dioxide 24 mmol/L (23-31) 07/24/19 17:34 BUN 26 mg/dL (8.4-25.7) H 07/24/19 17:34 Creatinine 1.55 mg/dL (0.7-1.3) H 07/24/19 17:34 Glucose 101 mg/dL (83-110) 07/24/19 17:34 Calcium 11.1 mg/dL (7.8-10.44) H 07/24/19 17:34 Total Bilirubin 0.8 mg/dL (0.2-1.2) 07/24/19 17:34 AST 18 U/L (5-34) 07/24/19 17:34 ALT 11 U/L (8-55) 07/24/19 17:34 Alkaline Phosphatase 65 U/L (40-110) 07/24/19 17:34 Serum Total Protein 8.1 g/dL (5.8-8.1) 07/24/19 17:34 Albumin 4.8 g/dL (3.4-4.8) 07/24/19 17:34 Urine Ketones Negative mg/dL (Negative) 07/24/19 17:34 Urine Blood 3+ (Negative) A 07/24/19 17:34 Urine Nitrite Negative (Negative) 07/24/19 17:34 Ur Leukocyte Esterase 75 [place]aco/uL (Negative) A 07/24/19 17:34 Urine RBC Greater than 50 HPF (0-3) A 07/24/19 17:34 Urine WBC Greater than 50 HPF (0-3) A 07/24/19 17:34 Ur Squamous Epith Cells 0-3 HPF (0-3) 07/24/19 17:34 Urine Bacteria 4+ HPF (None Seen) A 07/24/19 17:34 Hospitalist H&P A/P - Problem (1) Right flank pain Code(s): R10.9 - UNSPECIFIED ABDOMINAL PAIN Status: Acute (2) UTI (urinary tract infection) Status: Acute (3) Obstructive uropathy Code(s): N13.9 - OBSTRUCTIVE AND REFLUX UROPATHY, UNSPECIFIED Status: Acute (4) Hematuria Code(s): R31.9 - HEMATURIA, UNSPECIFIED Status: Acute (5) Atrial fibrillation Code(s): I48.91 - UNSPECIFIED ATRIAL FIBRILLATION Status: Chronic (6) Hypertension Code(s): I10 - ESSENTIAL (PRIMARY) HYPERTENSION Status: Chronic (7) GERD (gastroesophageal reflux disease) Code(s): K21.9 - GASTRO-ESOPHAGEAL REFLUX DISEASE WITHOUT ESOPHAGITIS Status: Chronic - Plan Plan: Continue IV antibiotics. Monitor BP. Gentle IV fluids. Pain improved. Baseline EKG. Reconcile home medications once verified. GI Prophylaxis with Pantoprazole which he takes at home. DVT Prophylaxis with mechanical SCDs. Further recommendations as per Dr. Morgan.
--- NOTE | 2019-07-25 00:31 | CON ---
DATE OF CONSULTATION: 07/24/2019 REASON FOR CONSULT: Obstructing ureteral stone. CHIEF COMPLAINT: Hematuria. HISTORY OF PRESENT ILLNESS: This is an 83-year-old male, who has been having gross hematuria for the past six or seven days. This was compounded by Eliquis use. He developed right-sided flank pain radiating to his right groin yesterday evening. His pain worsened throughout the day today, reaching 7 to 8/10. He does have a history of kidney stones. He was advised by his urologist, Dr. Stockton, to present to the emergency room here. In the emergency room, he was found to be hypertensive with positive leukocyte esterase in his urine and CT scan identified an obstructing right ureteral stone with hydronephrosis. In speaking with him, his pain is better controlled only about 4/10 currently. He denies any nausea, vomiting, fevers, or chills. He does report dysuria for the past 1 to 2 days. PAST MEDICAL HISTORY: Hyperlipidemia, kidney stones, atrial fibrillation, hypothyroid, and hypertension. PAST SURGICAL HISTORY: Hip surgery, appendectomy, cholecystectomy, and tonsillectomy. SOCIAL HISTORY: Previous smoker. . No substance abuse. Lives in [place]. ALLERGIES: NO KNOWN ALLERGIES. FAMILY HISTORY: Reviewed, noncontributory. CURRENT MEDICATIONS: Reviewed, pertinent for; 1. Eliquis. 2. Finasteride. REVIEW OF SYSTEMS: Ten-point review of systems performed, negative except as mentioned in my HPI. PHYSICAL EXAMINATION: VITAL SIGNS: Blood pressure has been as high as 210 systolic. Otherwise, he is not tachycardic, not febrile, and saturating well. GENERAL: No acute distress, conversant. HEENT: Head, normocephalic and atraumatic. Eyes, extraocular movements intact. Sclerae nonicteric. NECK: Supple. Trachea midline. LUNGS: Breathing unlabored. Symmetric chest expansion. HEART: Regular rate and rhythm. ABDOMEN: Soft, tender over the right lower quadrant, and nondistended. No flank tenderness. : Normal exam. SKIN: Warm and dry. NEUROLOGIC: Alert and oriented x3. PSYCHIATRIC: Normal mood and affect. LABORATORY DATA: Reviewed. White count 14.5. Creatinine elevated slightly at 1.55. Urine, positive leukocyte esterase and bacteria and negative nitrite. CT scan has been personally reviewed showing a 5 to 6 mm distal right ureteral stone with hydroureter and hydronephrosis. ASSESSMENT AND PLAN: Obstructing right ureteral stone with urinary tract infection and leukocytosis. I explained the situation to the patient and his . I advised that we proceed to the operating room for cystoscopy with retrograde pyelogram and stent placement. I explained this procedure in detail including the risks and expected postoperative course. Risks include bleeding, infection, pain, and inability to place the stent requiring possible nephrostomy tube placement. They do understand that the stone will not be treated at this setting and Dr. Stockton will likely treat this in the coming weeks. All of their questions were answered and they are in agreement with proceeding. A 70 minutes spent in direct patient care. Job ID: [id number]
[2019-07-25] MEDS: Sodium Chloride 0.9% 1,000 ML IV SCH ×2 (00:35→08:04)
--- NOTE | 2019-07-25 00:48 | OP ---
DATE OF PROCEDURE: 07/24/2019 PREOPERATIVE DIAGNOSES: Obstructing right ureteral stone with urinary tract infection and leukocytosis. POSTOPERATIVE DIAGNOSES: Obstructing right ureteral stone with urinary tract infection and leukocytosis. PROCEDURES PERFORMED: Cystoscopy with right retrograde pyelogram and placement of 6 x 26 double-J ureteral stent. ANESTHESIA: TIVA. COMPLICATIONS: None. SPECIMEN: None. BLOOD LOSS: Minimal. DESCRIPTION OF PROCEDURE: After informed consent, the patient was taken to the operating room, transferred to the table on his own power. Anesthesia was established. Time-out was performed showing the correct patient, site, and procedure. Preoperative antibiotics had been administered in the emergency room, which was confirmed at the time of the surgery. He was prepped and draped in the lithotomy position. I began by inserting a 22-Czech rigid cystoscope, noting a normal course and caliber at the urethra with large coapting lateral lobes of the prostate. The scope was then passed into the bladder noting [id number] trabeculation with a few small diverticula. He does have some small blood clots in his bladder. The right ureteral orifice was identified and cannulated with a Pollack catheter. A retrograde pyelogram was performed showing normal filling of the ureter into the distal ureter just under the pelvic brim at which point, there appeared to be a filling defect with hydroureter beyond. I was able to pass a Sensor wire beyond the stone into the renal pelvis and advanced a Pollack catheter at this point and then completed the retrograde pyelogram filling the renal pelvis with contrast showing hydronephrosis and hydroureter. I then placed an Amplatz wire, removed the Blackstone catheter. A 6 x 26 double-J ureteral stent was positioned over the wire with a curl in the kidney and curl in the bladder under direct visualization and fluoroscopy. Completion images were taken. The bladder was then drained. The scope withdrawn and the patient transferred back to his hospital bed. He will be admitted to the Hospitalist Service postoperatively. Job ID: [id number]
[2019-07-25 05:16] LABS: #Monocytes 1.2 thou/uL (0.11-0.59); #Neutrophils 6.8 thou/uL (1.40-6.50); %Basophils 0.5 % (0.0-1.0); %Eosinophils 0.1 % (0.0-10.0); %Lymphocytes 19.7 % (21.0-51.0); %Monocytes 11.7 % (0.0-10.0); %Neutrophils 67.9 % (42.0-75.0); Hemoglobin 13.4 g/dL (14.0-18.0); Mean Corpuscular HGB CONC 33.9 g/dL (32.0-36.0); Mean Corpuscular Hemoglobin 33.2 pg (27.0-31.0); Mean Corpuscular Volume 97.9 fL (78.0-98.0); Platelet Count 179 thou/uL (130-400); RBC Distribution Width 11.6 % (11.5-14.5); Red Blood Cell (RBC) Count 4.05 mill/uL (4.70-6.10)
[2019-07-25 05:46] LABS: Anion Gap 10 mmol/L (10-20); BUN (Urea Nitrogen) 21 mg/dL (8.4-25.7); Calc. Creatinine Clearance 69 mL/min (70-130); Carbon Dioxide 26 mmol/L (23-31); Chloride 107 mmol/L (98-107); Estimated GFR-MDRD 60; Glucose 103 mg/dL (83-110); Magnesium 2.2 mg/dL (1.6-2.6); Sodium 139 mmol/L (136-145)
[2019-07-25] MEDS ORDERED: Levothyroxine Sodium 25 MCG TAB PO SCH (06:00)
[2019-07-25] MEDS ORDERED: Prevnar 13-Val Conj/PF 0.5 ML SYRINGE IM ONE (09:00)
[2019-07-25 13:14] VITALS: BP 115/57; TEMP 97.8
--- NOTE | 2019-07-25 14:28 | PDOC.HOSPP ---
- Subjective Encounter Date: 07/25/19 Encounter Time: 14:28 Subjective: The patient has no nausea or vomiting. His urine is dark purple in color. Patient states he does feel a little weak. No fevers - Objective Vital Signs & Weight: Vital Signs (12 hours) Temp Pulse Resp BP Pulse Ox 07/25/19 13:13 97.8 F 63 18 115/57 L 96 07/25/19 08:10 98.1 F 58 L 18 143/81 H 96 07/25/19 04:05 97.8 F 55 L 16 162/77 H 93 L 07/25/19 03:00 98.6 F 58 L 16 154/75 H 95 Weight Admit Weight 229 lb 2 oz Weight 229 lb 2 oz I&O: 07/24/19 07/25/19 07/26/19 06:59 06:59 06:59 Intake Total 300 762 Output Total 350 Balance -50 762 Result Diagrams: 07/25/19 04:54 07/25/19 04:54 Hospitalist ROS - Review of Systems Constitutional: denies: fever, chills - Medication Medications: Active Medications Generic Name Dose Route Start Last Admin Trade Name Freq PRN Reason Stop Dose Admin Diltiazem HCl 360 mg 07/25/19 09:00 07/25/19 08:04 Cardizem Cd PO 360 mg DAILY GERRI Administration Sodium Chloride 1,000 mls @ 50 mls/hr 07/24/19 23:15 07/25/19 08:04 Normal Saline 0.9% IV 1,000 mls .Q20H GERRI Administration Levothyroxine Sodium 25 mcg 07/25/19 06:00 07/25/19 05:34 Synthroid PO 25 mcg 0600 GERRI Administration Pantoprazole Sodium 40 mg 07/25/19 09:00 07/25/19 08:04 Protonix PO 40 mg DAILY GERRI Administration Sodium Chloride 10 ml 07/24/19 23:05 07/25/19 08:04 Flush - Normal Saline IVF 10 ml Q12HR PRN Administration Saline Flush - Exam General Appearance: NAD, awake alert Eye: PERRL, anicteric sclera ENT: normocephalic atraumatic, no oropharyngeal lesions Neck: no JVD Heart: RRR, no murmur, no gallops, no rubs Respiratory: CTAB, no wheezes, no rales, no ronchi Gastrointestinal: soft, non-tender, non-distended, normal bowel sounds Extremities: no cyanosis, no clubbing, no edema Skin: normal turgor, no lesions, no rashes Neurological: cranial nerve grossly intact, normal sensation to touch, no focal deficits, no new deficit Musculoskeletal: normal tone, normal strength, no muscle wasting Psychiatric: normal affect, normal behavior, A&O x 3 Hosp A/P - Plan CT abdomen: moderate right sided hydronephrosis and hydroureter due to 6 mm distal right ureteral calculus 1 cm proximal to the right ureterovesical junction. Bilateral punctate renal calculi This is 83 year old male who presented with obstructive right hydroureteronephrosis s/p stent placement #Obstructive uropathy from kidney stone with hydronephrosis s/p ureteral stent placement #UTI - pt went placement of double J ureteral stent on 07/23. He is currently on IV ceftriaxone - WBC has resolved - urine culture is normal - per , patient was told by urology they wanted to continue IV antibiotics for another day -however after discussion with Dr. Stockton, pt stable for discharge today
--- NOTE | 2019-07-25 15:57 | PRG ---
DATE OF SERVICE: 07/25/2019 This is postop day #1. I saw him in the office yesterday. He came in with 7 days of off and on hematuria, feeling poorly, some nausea, poor eating, urinating blood. He went to the hospital and had a CT done, that showed a distal 6-mm ureteral stone with hydro. He had some leukocytosis and bacteria in the urine. He had a CAT scan done that I reviewed, and because of the bacteria in the urine and white cells and red cells in the urine, he had a stent placed emergently last night. He has been afebrile ever since. He is feeling better. Urine is still bloody. I think he will probably stay bloody for a day or two with the stent in and being on the Eliquis, which I think he should stop. Urine culture 24 hours is negative. His white count is normal today. His creatinine is 1.15, it was slightly elevated yesterday. He seems to be feeling better. He is on Rocephin, which he received yesterday and today. I was recommending he stay in overnight, but hospice called me said the urine culture had come back no growth at 24 hours. I think it is reasonable to go home on some Macrobid. He can take it either once a day or twice a day. It would be prophylactic while the stents in. We will give him a few days to see if he can pass the stone been feeling well for few days, not eating and drinking much. We will set him up for most likely ureteroscopy with stone retrieval and laser lithotripsy probably next week at some point if he does not pass the stone. I would like him to stay off his Eliquis over that period of time and I think he is just going to have persistent problems with hematuria if he stays on it. Job ID: [id number]
[2019-07-25] MEDS ORDERED: cefTRIAXone\\ROCEPHIN 2 GM in Sodium Chloride 0.9% 100 ML IVPB SCH (18:00)
[2019-07-25] MEDS ORDERED: Finasteride 5 MG TAB PO SCH (21:00)
[2019-07-25] MEDS ORDERED: Rosuvastatin 5 MG TAB PO SCH (21:00)
--- NOTE | 2019-07-26 01:55 | DIS ---
DATE OF ADMISSION: 07/24/2019 DATE OF DISCHARGE: 07/25/2019 DISCHARGE DIAGNOSES: 1. Obstructive uropathy with hydronephrosis secondary to kidney stone, status post right-sided ureteral stent placement. 2. Leukocytosis. 3. Anemia. 4. Acute kidney injury. 5. Hypercalcemia. CONSULTATIONS: Dr. Rey Stockton with urology PROCEDURES: double ureteral J-stent placement 07/23 BRIEF HISTORY OF PRESENT ILLNESS: This is an 83-year-old male with a past medical history of atrial fibrillation, on Eliquis, who presented to the emergency room with intermittent flank pain, darkening of his urine, and severe 8/10 abdominal pain radiating to the groin. The patient was found to have obstructive uropathy with hydronephrosis with a 6 mm right ureteral calculus. He was taken to the OR on the and underwent placement of a double ureteral J-stent on 07/23. He was admitted for further workup. HOSPITAL COURSE: Obstructive uropathy secondary to hydronephrosis/ROBIN. The patient had a UA which showed turbid urine with 100 protein, 75 leukocyte esterase, and greater than 50 white blood cells. Urine culture showed no growth. The patient was started on IV ceftriaxone. He was hydrated with IV fluids. His repeat BMP showed improvement in his creatinine to 1.15. This is possibly secondary to some old blood or mild hematuria. The patient was discharged with nitrofurantoin for 30 days. He should follow up with Dr. Stockton in 1 week for removal of his kidney stone. He should stay off his Eliquis until he follows up with him. Hypercalcemia: calcium was 11 on admission which resolved to 9 on the day of discharge. Anemia: The patient's hemoglobin was 13.4 on the day of discharge. He should have a repeat CBC in a week. Acute kidney injury: The patient's creatinine was 1.55 and improved to 1.15 with IV fluids. DISCHARGE PHYSICAL EXAMINATION: VITAL SIGNS: Temperature 97.8, heart rate 63, respiratory rate 18, O2 saturation 96% on room air, blood pressure 115/57. GENERAL: The patient is alert, awake, oriented x3. CVS: Regular rate and rhythm. No murmurs, rubs, or gallops. LUNGS: Clear to auscultation bilaterally. ABDOMEN: Positive bowel sounds, soft, nontender, nondistended. No CVA tenderness. EXTREMITIES: No edema. : Urine, the patient has dark purplish urine. NEURO: The patient has mild dementia. He is oriented to the place and his name. PERTINENT LABORATORY DATA: CBC on 07/24: White count 10.0, hemoglobin 13.4, hematocrit 39.6, platelet count 179. BMP on 07/24: Creatinine 1.15. Rest of BMP unremarkable. Calcium on 07/23: 11.1. Calcium on 07/24: 9.0. LFTs on 07/23: Normal. UA on 07/23: Extra turbid urine with 100 protein, 3+ blood, 75 leukocyte esterase, greater than 50 RBCs, greater than 50 white blood cells, 4+ bacteria. Urine culture on 07/23: Shows no growth. PERTINENT IMAGING: CT abdomen pelvis on 07/23: Shows moderate right-sided hydronephrosis and hydroureter related to 6 mm distal ureteral calculus located approximately 1 cm proximal to the right ureterovesical junction. Bilateral punctate renal calculi. DISCHARGE CONDITION: Stable. ACTIVITY: As tolerated. DIET: Regular diet. DISCHARGE MEDICATIONS: NEW PRESCRIPTIONS: 1. Nitrofurantoin 50 mg p.o. at bedtime, quantity 30. DISCHARGE INSTRUCTIONS: The patient should follow up with his PCP in a week and have repeat CBC to follow up the hemoglobin. He should take nitrofurantoin as antibiotic prophylaxis. Follow up with Dr. Rey Stockton in a week for removal of his kidney stone. He should stay off Eliquis until he has the stone removed. Job ID: [id number] [facility]
== END 2019-07-25 17:01 | disposition home or self-care (01) ==
LOC: ERS 16:18 → SDC 20:55 → ONC 22:17
PROVIDERS: ADMIT Internal Medicine; ATTEND Internal Medicine
PROC: 0T768DZ Dilation of Right Ureter with Intraluminal Device, Via Natural or Artificial Opening Endoscopic (ICD-10-PCS; principal; 2019-07-24)
DX: N13.6 Pyonephrosis (principal); N32.89 Other specified disorders of bladder; N32.3 Diverticulum of bladder; D64.9 Anemia, unspecified; N17.9 Acute kidney failure, unspecified; E83.52 Hypercalcemia; I10 Essential (primary) hypertension; N40.0 Benign prostatic hyperplasia without lower urinary tract symptoms; E78.5 Hyperlipidemia, unspecified; E03.9 Hypothyroidism, unspecified; K21.9 Gastro-esophageal reflux disease without esophagitis; I48.20 Chronic atrial fibrillation, unspecified; Z87.891 Personal history of nicotine dependence; Z79.01 Long term (current) use of anticoagulants; Z79.899 Other long term (current) drug therapy
CPT/HCPCS: 52332; 74176; 74420; 80048; 80053; 83735; 85025 ×2; 87086; 93005; 96365; 96375; 96376; 97139; 99285; C1758; C1769; G0378 ×3; 36415; 81003; 81015; 93010; J0696; J2001; J2270; J2370; J2405; J2704; J3010; Q9967

== ENCOUNTER 2019-07-29 12:36 | Outpatient (CLI) | payer MEDICARE, OTHER ==
[2019-07-29 18:48] LABS: SARS-CoV-2 MS2 Positive; SARS-CoV-2 N Gene Negative; SARS-CoV-2 S Gene Negative; SARS-CoV-2 orf1ab Negative
== END 2019-07-29 12:37 | disposition home or self-care (01) ==
LOC: LABBT 12:36
PROVIDERS: ATTEND Urology
DX: Z01.818 Encounter for other preprocedural examination (principal); Z11.59 Encounter for screening for other viral diseases; N20.1 Calculus of ureter
CPT/HCPCS: 93005; U0003; 87635; 93010

== ENCOUNTER 2019-07-31 06:58 | Day surgery (SDC) | payer MEDICARE ==
[2019-07-29 12:31] VITALS: BMI 28.7
[2019-07-31] MEDS ORDERED: cefTRIAXone\\ROCEPHIN 2 GM VIAL ONE (08:14)
[2019-07-31] MEDS ORDERED: Sodium Chloride 0.9% 100 ML ONE (08:14)
[2019-07-31] MEDS ORDERED: Hydrocortisone Sod Succ/PF 100 mg/2 ml Vial ONE (08:19)
[2019-07-31 09:01] LABS: Hemoglobin 14.3 g/dL (14.0-18.0); Mean Corpuscular HGB CONC 33.4 g/dL (32.0-36.0); Mean Corpuscular Hemoglobin 32.6 pg (27.0-31.0); Mean Corpuscular Volume 97.6 fL (78.0-98.0); Mean Platelet Volume 7.1 fL (7.4-10.4); Platelet Count 198 thou/uL (130-400); RBC Distribution Width 11.7 % (11.5-14.5); Red Blood Cell (RBC) Count 4.38 mill/uL (4.70-6.10); White Blood Cell (WBC) Count 8.3 thou/uL (4.8-10.8)
[2019-07-31 09:03] LABS: INR-International Normal Ratio 0.9; PTT 29.7 sec (22.9-36.1); Prothrombin Time 12.6 sec (12.0-14.7)
[2019-07-31 09:14] LABS: Anion Gap 12 mmol/L (10-20); BUN (Urea Nitrogen) 18 mg/dL (8.4-25.7); Calc. Creatinine Clearance 64 mL/min (70-130); Calcium 10.1 mg/dL (7.8-10.44); Carbon Dioxide 24 mmol/L (23-31); Chloride 107 mmol/L (98-107); Estimated GFR-MDRD 55; Glucose 101 mg/dL (83-110); Potassium 4.2 mmol/L (3.5-5.1); Sodium 139 mmol/L (136-145)
[2019-07-31] MEDS ORDERED: Iopamidol 0 ML FS ONE (09:35)
[2019-07-31] MEDS ORDERED: Fentanyl 100 MCG/2 ML VIAL ONE ×2 (09:39→11:06)
[2019-07-31] MEDS ORDERED: Ioversol 68 % 50 ML VIAL ONE (09:49)
--- NOTE | 2019-07-31 10:53 | RAD ---
EXAM: XR IVP Retrograde PROVIDED CLINICAL HISTORY: Fluoroscopy for right side Stone retrieval. COMPARISON: 07/24/2019 FINDINGS/IMPRESSION: Paintings Conservator image demonstrates a right ureteral stent in place. Left total hip prosthesis is present. Multi ple phleboliths overlie the pelvis. Degenerative change are seen in the spine. Subsequent imaging demonstrates removal of the right ureteral stent with guidewire and catheter in pl amy and contrast in the right renal collecting system. Final image demonstrating right ureteral stent in place with proximal portion stent overlying the superior pole right renal calyx and distal p ortion overlying the urinary bladder. Correlation with intraoperative findings is recommended.
[2019-07-31] MEDS ORDERED: Lidocaine 1% PF 5 ML VIAL ONE (10:55)
[2019-07-31] MEDS ORDERED: Dexamethasone 20 MG/5 ML VIAL ONE (10:55)
[2019-07-31] MEDS ORDERED: Ondansetron PF 4 MG/2 ML Vial ONE (10:55)
[2019-07-31] MEDS ORDERED: PROPOFOL 200 MG/20 ML VIAL ONE (10:55)
--- NOTE | 2019-07-31 17:40 | OP ---
DATE OF PROCEDURE: 07/31/2019 PREOPERATIVE DIAGNOSIS: Right distal ureteral stone. POSTOPERATIVE DIAGNOSIS: Right distal ureteral stone. PROCEDURES PERFORMED: Cystoscopy, right rigid ureteroscopy, laser lithotripsy, stone retrieval, and stent replacement. ANESTHESIA: General. ESTIMATED BLOOD LOSS: Minimal. FINDINGS: There was a stone in the right distal ureter. It had already broken into a couple of pieces. One was quite small that we just basketed and removed and sent for gross only. The other one was a bit larger that we broke up into tiny fragments with a small caliber holmium laser fiber, washed these into the bladder and then we irrigated them out through the cystoscope at the end of the case. DRAINS PLACED: 26-Emirati x 6-Emirati double-J stent with a string attached. At the end of the case, retrograde study showed no obstruction, no persistent filling defects, and no extravasation. DESCRIPTION OF PROCEDURE: After obtaining written and verbal consent from the patient, after receiving IV antibiotics and some hydrocortisone because of an iodine allergy, he was taken to the operating suite. He was placed in the supine position on the treatment table. PlexiPulses were placed on his lower extremities and turned on. He was given a general anesthetic and oral obturator intubation. He was placed in the dorsal lithotomy position, sterilely prepped and draped for the procedure. The fluoroscopy unit was placed over him, so we could easily see the stent along its entirety. There did appear to be a distal calcification adjacent to the stent. Cystoscopy was performed with a 22-Emirati sheath, this was well lubricated and passed under direct vision through the male urethra into the urinary bladder with aid of a 30-degree lens and video camera and monitor. The bladder was filled and emptied a couple of times as there were some blood collecting on the floor of the bladder. Once this was clear, we went ahead and grasped the distal end of the indwelling double-J stent and brought it out through the urethral meatus and fed a guidewire through this up in the region of the renal pelvis. We then passed the open-ended dual-lumen catheter over this wire about three-quarters of the way up the ureter and then injected contrast through this, filling out a normal upper collecting system, and fed a stiff blue guidewire across this and then removed the dual lumen catheter. We then went in with a small caliber graduated rigid ureteroscope and under direct vision with aid of a video camera, we passed through the male urethra into the bladder and up the right ureter adjacent to the two guidewires. The stone was in the distal right ureter, a centimeter or so above the right ureteral orifice. There was one fragment of it by itself that was more distal that we basketed and removed. We then repeated the rigid ureteroscopy and found a larger part of it, just a little proximal to that, which we went ahead and used a small caliber holmium laser fiber to break into numerous tiny pieces, most of which came out into the bladder. We went up to the proximal ureter with the scope and not passed with the junction of the proximal third and distal two-thirds and found no other sizable stone fragments remaining and then removed the scope under direct vision. We placed a dual-lumen catheter again over the blue wire and then filled out the entire collecting system and ureter as we injected contrast and backed out with the dual-lumen catheter. There was no extravasation, no persistent filling defect, and no obstruction. The green guidewire was backloaded through the cystoscope. The cystoscope was replaced and a stent was passed over the guidewire and pushed up into place with aid of a pusher, so that its proximal end coiled in the upper pole calyceal system and its distal end coiled in the bladder when the wire was removed. The string was cut exiting the urethral meatus about 3 inches. We did irrigate the bladder out through the 22-Emirati sheath for some of the tiny stone fragments to washout before removing the instruments. He was taken out of the dorsal lithotomy position, awakened, extubated, and taken by stretcher to the recovery room. Job ID: [id number]
== END 2019-07-31 13:00 | disposition home or self-care (01) ==
LOC: SDC 06:58
PROVIDERS: ATTEND Urology
PROC: 0TC68ZZ Extirpation of Matter from Right Ureter, Via Natural or Artificial Opening Endoscopic (ICD-10-PCS; principal; 2019-07-31)
PROC: 0T768DZ Dilation of Right Ureter with Intraluminal Device, Via Natural or Artificial Opening Endoscopic (ICD-10-PCS; 2019-07-31)
DX: N20.1 Calculus of ureter (principal); E03.9 Hypothyroidism, unspecified; E78.00 Pure hypercholesterolemia, unspecified; I48.91 Unspecified atrial fibrillation; K21.9 Gastro-esophageal reflux disease without esophagitis; Z79.01 Long term (current) use of anticoagulants; Z79.899 Other long term (current) drug therapy
CPT/HCPCS: 74420; 80048; 82365; 85027; 85610; 85730; 88300; J0696; J1100; J1720; J2001; J2405; J2704; J3010; J3490; Q9967

== ENCOUNTER 2022-06-06 04:52 | Inpatient (IN) | payer MEDICARE ==
[2022-06-06 06:07] LABS: #Lymphocytes 1.4 thou/uL (1.20-3.40); #Monocytes 1.4 thou/uL (0.11-0.59); #Neutrophils 8.8 thou/uL (1.40-6.50); %Basophils 0.3 % (0.0-1.0); %Eosinophils 0.1 % (0.0-10.0); %Lymphocytes 12.2 % (21.0-51.0); %Monocytes 12.2 % (0.0-10.0); %Neutrophils 75.2 % (42.0-75.0); Hemoglobin 13.7 g/dL (14.0-18.0); Mean Corpuscular Hemoglobin 32.5 pg (27.0-31.0); Mean Corpuscular Volume 98.5 fl (78.0-98.0); Mean Platelet Volume 7.3 fL (7.4-10.4); Platelet Count 180 10x3/uL (130-400); RBC Distribution Width 11.9 % (11.5-14.5); Red Blood Cell (RBC) Count 4.22 mill/uL (4.70-6.10); White Blood Cell (WBC) Count 11.8 10x3/uL (4.8-10.8)
[2022-06-06 06:26] LABS: ALT (SGPT) 12 U/L (8-55); AST (SGOT) 19 U/L (5-34); Albumin 3.8 g/dL (3.4-4.8); Alkaline Phosphatase 51 U/L (40-110); Anion Gap 13 mmol/L (10-20); BUN (Urea Nitrogen) 17 mg/dL (8.4-25.7); Bilirubin, Total 0.7 mg/dL (0.2-1.2); Calc. Creatinine Clearance 0 mL/min (70-130); Calcium 10.1 mg/dL (7.8-10.44); Carbon Dioxide 22 mmol/L (23-31); Chloride 107 mmol/L (98-107); Estimated GFR 30; Globulin 2.7 g/dL (2.4-3.5); Glucose 115 mg/dL (83-110); Potassium 3.8 mmol/L (3.5-5.1); Protein, Total 6.5 g/dL (5.8-8.1); Sodium 138 mmol/L (136-145)
[2022-06-06 06:40] LABS: Bilirubin Negative (Negative); Blood, Urine 3+ (Negative); Calcium Oxalate Crystals Rare HPF (None Seen); Clarity Turbid (Clear); Glucose, Urine (Dipstick) Normal (Negative); Ketone, Urine Trace mg/dL (Negative); Leukocyte 25 Leu/uL (Negative); Nitrite Negative (Negative); Protein, Urine (Dipstick) 30 mg/dL (Neg-Trace); RBC/HPF Greater than 50 HPF (0-3); Specific Gravity, Urine 1.022 (1.002-1.036); Squamous Epithelial 0-3 HPF (0-3); Urobilinogen Normal mg/dL (Less than 2); WBC/HPF 21-50 HPF (0-3)
[2022-06-06 06:43] LABS: Bacteria/HPF 1+ HPF (None Seen)
[2022-06-06] MEDS ORDERED: Meropenem 1 GM in Sodium Chloride 0.9% 100 ML IVPB SCH ×2 (08:00→14:00)
[2022-06-06] MEDS ORDERED: Ondansetron PF 4 MG/2 ML Vial IVP PRN (08:52)
[2022-06-06] MEDS ORDERED: VANCOMYCIN IVPB PRN (11:04)
[2022-06-06] MEDS: Sodium Chloride 0.9% 1,000 ML IV SCH ×2 (15:06→19:41)
[2022-06-06] MEDS: Vancomycin 1 GM in Premix Bag 1 BAG IVPB SCH (15:06)
[2022-06-06 15:40] VITALS: BMI 28.6
[2022-06-06] MEDS ORDERED: Famotidine/PF 20 mg/2ml Vial ONE (17:34)
[2022-06-06] MEDS ORDERED: fentaNYL 50 mcg/mL 1 mL Vial ONE ×2 (17:34→18:57)
[2022-06-06] MEDS ORDERED: Lidocaine 1% PF 5 ML VIAL ONE (17:47)
[2022-06-06] MEDS ORDERED: PROPOFOL 200 MG/20 ML VIAL ONE (17:47)
[2022-06-06] MEDS ORDERED: Morphine Sulfate 2 MG/ML SYRINGE SLOW IVP PRN (18:28)
[2022-06-06] MEDS ORDERED: Ondansetron HCl/PF 4 MG/2 ML Vial IVP PRN (18:28)
[2022-06-06] MEDS: Meropenem 1 GM in Sodium Chloride 0.9% 100 ML IVPB SCH (19:40)
[2022-06-06] MEDS: Finasteride 5 MG TAB PO SCH (20:29)
[2022-06-06] MEDS: Rosuvastatin 5 MG TAB PO SCH (20:29)
[2022-06-07] MEDS: Sodium Chloride 0.9% 1,000 ML IV SCH ×2 (05:39→17:34)
[2022-06-07] MEDS: Levothyroxine Sodium 50 MCG TAB PO SCH (05:39)
[2022-06-07] MEDS: Meropenem 1 GM in Sodium Chloride 0.9% 100 ML IVPB SCH ×2 (05:39→17:33)
[2022-06-07 06:24] LABS: #Lymphocytes 1.4 thou/uL (1.20-3.40); #Monocytes 1.4 thou/uL (0.11-0.59); #Neutrophils 9.3 thou/uL (1.40-6.50); %Eosinophils 0.1 % (0.0-10.0); %Lymphocytes 11.4 % (21.0-51.0); %Monocytes 11.5 % (0.0-10.0); %Neutrophils 76.9 % (42.0-75.0); Hemoglobin 12.9 g/dL (14.0-18.0); Mean Corpuscular HGB CONC 32.8 g/dL (32.0-36.0); Mean Corpuscular Hemoglobin 32.6 pg (27.0-31.0); Mean Corpuscular Volume 99.2 fl (78.0-98.0); Mean Platelet Volume 7.4 fL (7.4-10.4); Platelet Count 153 10x3/uL (130-400); RBC Distribution Width 12.2 % (11.5-14.5); Red Blood Cell (RBC) Count 3.95 mill/uL (4.70-6.10); White Blood Cell (WBC) Count 12.1 10x3/uL (4.8-10.8)
[2022-06-07 06:25] LABS: Hemoglobin A1c 5.2 % (4.0-6.0)
[2022-06-07 06:41] LABS: ALT (SGPT) 8 U/L (8-55); AST (SGOT) 15 U/L (5-34); Albumin 3.2 g/dL (3.4-4.8); Alkaline Phosphatase 46 U/L (40-110); Anion Gap 13 mmol/L (10-20); BUN (Urea Nitrogen) 18 mg/dL (8.4-25.7); Bilirubin, Direct 0.4 mg/dL (0.1-0.3); Bilirubin, Total 0.9 mg/dL (0.2-1.2); Calc. Creatinine Clearance 47 mL/min (70-130); Calcium 9.2 mg/dL (7.8-10.44); Carbon Dioxide 21 mmol/L (23-31); Chloride 109 mmol/L (98-107); Estimated GFR 41; Glucose 113 mg/dL (83-110); Potassium 4.2 mmol/L (3.5-5.1); Protein, Total 5.6 g/dL (5.8-8.1); Sodium 139 mmol/L (136-145)
[2022-06-07] MEDS: Vancomycin 1 GM in Premix Bag 1 BAG IVPB SCH (11:00)
[2022-06-07] MEDS: Acetaminophen 325 MG TAB PO PRN ×2 (11:01→16:52)
[2022-06-07] MEDS ORDERED: Polyethylene Glycol 3350 17 GM Packet PO SCH (11:45)
[2022-06-07] MEDS: Rosuvastatin 5 MG TAB PO SCH (21:27)
[2022-06-07] MEDS: Finasteride 5 MG TAB PO SCH (21:27)
[2022-06-08] MEDS: Sodium Chloride 0.9% 1,000 ML IV SCH ×2 (01:47→11:38)
[2022-06-08] MEDS: Levothyroxine Sodium 50 MCG TAB PO SCH (06:38)
[2022-06-08 07:03] LABS: #Eosinphils 0.1 thou/uL (0.0-0.7); #Lymphocytes 1.3 thou/uL (1.20-3.40); #Monocytes 1.2 thou/uL (0.11-0.59); #Neutrophils 6.1 thou/uL (1.40-6.50); %Basophils 0.3 % (0.0-1.0); %Eosinophils 1.1 % (0.0-10.0); %Lymphocytes 14.4 % (21.0-51.0); %Monocytes 13.9 % (0.0-10.0); %Neutrophils 70.3 % (42.0-75.0); Hemoglobin 13.2 g/dL (14.0-18.0); Mean Corpuscular Hemoglobin 33.5 pg (27.0-31.0); Mean Corpuscular Volume 98.3 fl (78.0-98.0); Mean Platelet Volume 7.2 fL (7.4-10.4); Platelet Count 135 10x3/uL (130-400); Red Blood Cell (RBC) Count 3.95 mill/uL (4.70-6.10); White Blood Cell (WBC) Count 8.7 10x3/uL (4.8-10.8)
[2022-06-08 07:24] LABS: Anion Gap 11 mmol/L (10-20); BUN (Urea Nitrogen) 16 mg/dL (8.4-25.7); Calc. Creatinine Clearance 61 mL/min (70-130); Calcium 9.2 mg/dL (7.8-10.44); Carbon Dioxide 24 mmol/L (23-31); Chloride 108 mmol/L (98-107); Estimated GFR 56; Glucose 102 mg/dL (83-110); Magnesium 1.8 mg/dL (1.6-2.6); Potassium 3.7 mmol/L (3.5-5.1); Sodium 139 mmol/L (136-145)
[2022-06-08] MEDS: Polyethylene Glycol 3350 17 GM Packet PO SCH (08:31)
[2022-06-08] MEDS ORDERED: Non-Formulary Item 1 EACH (Diltiazem Hcl [Diltiazem 12hr Er] 120 MG Cap.Er.12h) PO SCH (09:00)
[2022-06-08] MEDS: Vancomycin 1 GM in Premix Bag 1 BAG IVPB SCH (11:37)
[2022-06-08] MEDS: Acetaminophen 325 MG TAB PO PRN ×2 (11:38→21:58)
[2022-06-08 11:59] LABS: Vancomycin, Trough 5.8 ug/mL
[2022-06-08] MEDS ORDERED: Diltiazem HCl SR 60 mg Capsule PO SCH (19:00)
[2022-06-08] MEDS: Rosuvastatin 5 MG TAB PO SCH (21:56)
[2022-06-08] MEDS: Finasteride 5 MG TAB PO SCH (21:56)
[2022-06-08] MEDS: Diltiazem HCl SR 60 mg Capsule PO SCH (21:56)
[2022-06-08] MEDS: Vancomycin HCl 750 MG in Sodium Chloride 0.9% 250 ML 250 ML IVPB SCH (23:27)
[2022-06-08] MEDS ORDERED: hydrALAZINE 20 MG/ML VIAL SLOW IVP SCH (23:59)
[2022-06-09] MEDS: Levothyroxine Sodium 50 MCG TAB PO SCH (05:56)
[2022-06-09 06:42] LABS: #Eosinphils 0.1 thou/uL (0.0-0.7); #Lymphocytes 1.4 thou/uL (1.20-3.40); #Monocytes 0.8 thou/uL (0.11-0.59); #Neutrophils 4.1 thou/uL (1.40-6.50); %Basophils 0.5 % (0.0-1.0); %Eosinophils 1.6 % (0.0-10.0); %Lymphocytes 21.3 % (21.0-51.0); %Monocytes 12.5 % (0.0-10.0); %Neutrophils 64.1 % (42.0-75.0); Hemoglobin 13.3 g/dL (14.0-18.0); Mean Corpuscular HGB CONC 33.9 g/dL (32.0-36.0); Mean Corpuscular Hemoglobin 33.2 pg (27.0-31.0); Mean Corpuscular Volume 97.9 fl (78.0-98.0); Mean Platelet Volume 7.3 fL (7.4-10.4); Platelet Count 167 10x3/uL (130-400); RBC Distribution Width 11.7 % (11.5-14.5); Red Blood Cell (RBC) Count 4.02 mill/uL (4.70-6.10); White Blood Cell (WBC) Count 6.4 10x3/uL (4.8-10.8)
[2022-06-09 06:58] LABS: Anion Gap 12 mmol/L (10-20); BUN (Urea Nitrogen) 14 mg/dL (8.4-25.7); Calc. Creatinine Clearance 78 mL/min (70-130); Calcium 9.8 mg/dL (7.8-10.44); Carbon Dioxide 22 mmol/L (23-31); Chloride 110 mmol/L (98-107); Estimated GFR 76; Glucose 104 mg/dL (83-110); Magnesium 1.5 mg/dL (1.6-2.6); Potassium 3.5 mmol/L (3.5-5.1); Sodium 140 mmol/L (136-145)
[2022-06-09] MEDS ORDERED: Diltiazem HCl SR 60 mg Capsule PO SCH (09:00)
[2022-06-09] MEDS: Sodium Chloride 0.9% 1,000 ML IV SCH ×3 (09:57→13:31)
[2022-06-09] MEDS: Polyethylene Glycol 3350 17 GM Packet PO SCH (09:59)
[2022-06-09] MEDS: hydrALAZINE 25 MG TAB PO SCH ×3 (09:59→21:01)
[2022-06-09] MEDS: Losartan 25 MG TAB PO SCH (09:59)
[2022-06-09] MEDS: Vancomycin HCl 750 MG in Sodium Chloride 0.9% 250 ML 250 ML IVPB SCH (13:34)
[2022-06-09] MEDS ORDERED: Bisacodyl 10 MG SUPP PR PRN (18:47)
[2022-06-09] MEDS: Senokot S 8.6-50 MG TAB PO SCH (21:00)
[2022-06-09] MEDS: Finasteride 5 MG TAB PO SCH (21:00)
[2022-06-09] MEDS: Diltiazem HCl SR 60 mg Capsule PO SCH (21:00)
[2022-06-09] MEDS: Rosuvastatin 5 MG TAB PO SCH (21:01)
[2022-06-10] MEDS: Vancomycin HCl 750 MG in Sodium Chloride 0.9% 250 ML 250 ML IVPB SCH (00:50)
[2022-06-10] MEDS: Sodium Chloride 0.9% 1,000 ML IV SCH (05:57)
[2022-06-10] MEDS: Levothyroxine Sodium 50 MCG TAB PO SCH (05:57)
[2022-06-10 07:55] LABS: #Eosinphils 0.1 thou/uL (0.0-0.7); #Lymphocytes 1.4 thou/uL (1.20-3.40); #Monocytes 0.7 thou/uL (0.11-0.59); #Neutrophils 3.7 thou/uL (1.40-6.50); %Basophils 0.1 % (0.0-1.0); %Eosinophils 1.5 % (0.0-10.0); %Lymphocytes 23.6 % (21.0-51.0); %Monocytes 11.6 % (0.0-10.0); %Neutrophils 63.2 % (42.0-75.0); Hemoglobin 12.4 g/dL (14.0-18.0); Mean Corpuscular HGB CONC 31.2 g/dL (32.0-36.0); Mean Corpuscular Hemoglobin 30.7 pg (27.0-31.0); Mean Corpuscular Volume 98.6 fl (78.0-98.0); Mean Platelet Volume 7.1 fL (7.4-10.4); Platelet Count 178 10x3/uL (130-400); RBC Distribution Width 11.8 % (11.5-14.5); Red Blood Cell (RBC) Count 4.02 mill/uL (4.70-6.10); White Blood Cell (WBC) Count 5.9 10x3/uL (4.8-10.8)
[2022-06-10 07:57] LABS: Anion Gap 12 mmol/L (10-20); BUN (Urea Nitrogen) 11 mg/dL (8.4-25.7); Calc. Creatinine Clearance 83 mL/min (70-130); Calcium 9.5 mg/dL (7.8-10.44); Carbon Dioxide 23 mmol/L (23-31); Chloride 108 mmol/L (98-107); Estimated GFR 81; Glucose 99 mg/dL (83-110); Magnesium 1.6 mg/dL (1.6-2.6); Potassium 3.5 mmol/L (3.5-5.1); Sodium 139 mmol/L (136-145)
[2022-06-10] MEDS: hydrALAZINE 25 MG TAB PO SCH ×3 (10:24→19:43)
[2022-06-10] MEDS: Senokot S 8.6-50 MG TAB PO SCH ×2 (10:24→19:43)
[2022-06-10] MEDS: Polyethylene Glycol 3350 17 GM Packet PO SCH (10:24)
[2022-06-10] MEDS: Losartan 25 MG TAB PO SCH (10:25)
[2022-06-10] MEDS: Ampicillin 2 GM in Sodium Chloride 0.9% 100 ML IVPB SCH ×3 (12:13→23:34)
[2022-06-10] MEDS: Finasteride 5 MG TAB PO SCH (19:43)
[2022-06-10] MEDS: Diltiazem HCl SR 60 mg Capsule PO SCH (19:43)
[2022-06-10] MEDS: Rosuvastatin 5 MG TAB PO SCH (19:43)
[2022-06-11] MEDS: Levothyroxine Sodium 50 MCG TAB PO SCH (05:06)
[2022-06-11] MEDS: Ampicillin 2 GM in Sodium Chloride 0.9% 100 ML IVPB SCH ×4 (05:06→23:12)
[2022-06-11 07:08] LABS: #Eosinphils 0.1 thou/uL (0.0-0.7); #Lymphocytes 1.4 thou/uL (1.20-3.40); #Monocytes 0.8 thou/uL (0.11-0.59); #Neutrophils 4.1 thou/uL (1.40-6.50); %Basophils 0.1 % (0.0-1.0); %Lymphocytes 22.4 % (21.0-51.0); %Monocytes 12.4 % (0.0-10.0); %Neutrophils 64.1 % (42.0-75.0); Hemoglobin 12.5 g/dL (14.0-18.0); Mean Corpuscular HGB CONC 34.3 g/dL (32.0-36.0); Mean Corpuscular Hemoglobin 33.6 pg (27.0-31.0); Mean Corpuscular Volume 98.1 fl (78.0-98.0); Mean Platelet Volume 6.9 fL (7.4-10.4); Platelet Count 179 10x3/uL (130-400); RBC Distribution Width 11.9 % (11.5-14.5); Red Blood Cell (RBC) Count 3.71 mill/uL (4.70-6.10); White Blood Cell (WBC) Count 6.4 10x3/uL (4.8-10.8)
[2022-06-11 07:22] LABS: Anion Gap 12 mmol/L (10-20); BUN (Urea Nitrogen) 14 mg/dL (8.4-25.7); Calc. Creatinine Clearance 85 mL/min (70-130); Calcium 9.7 mg/dL (7.8-10.44); Carbon Dioxide 21 mmol/L (23-31); Chloride 111 mmol/L (98-107); Estimated GFR 83; Glucose 112 mg/dL (83-110); Magnesium 1.6 mg/dL (1.6-2.6); Potassium 3.5 mmol/L (3.5-5.1); Sodium 140 mmol/L (136-145)
[2022-06-11] MEDS: Senokot S 8.6-50 MG TAB PO SCH ×2 (09:37→19:33)
[2022-06-11] MEDS: Losartan 25 MG TAB PO SCH (09:37)
[2022-06-11] MEDS: Polyethylene Glycol 3350 17 GM Packet PO SCH (09:37)
[2022-06-11] MEDS: hydrALAZINE 25 MG TAB PO SCH ×3 (09:37→19:34)
[2022-06-11] MEDS: Diltiazem HCl SR 60 mg Capsule PO SCH (19:33)
[2022-06-11] MEDS: Rosuvastatin 5 MG TAB PO SCH (19:33)
[2022-06-11] MEDS: Finasteride 5 MG TAB PO SCH (19:34)
[2022-06-12] MEDS: Ampicillin 2 GM in Sodium Chloride 0.9% 100 ML IVPB SCH ×4 (05:29→21:39)
[2022-06-12] MEDS: Levothyroxine Sodium 50 MCG TAB PO SCH (05:29)
[2022-06-12 06:20] LABS: #Eosinphils 0.2 thou/uL (0.0-0.7); #Lymphocytes 2.1 thou/uL (1.20-3.40); #Monocytes 0.9 thou/uL (0.11-0.59); #Neutrophils 4.6 thou/uL (1.40-6.50); %Basophils 0.3 % (0.0-1.0); %Lymphocytes 26.6 % (21.0-51.0); %Monocytes 11.7 % (0.0-10.0); %Neutrophils 59.5 % (42.0-75.0); Hemoglobin 12.6 g/dL (14.0-18.0); Mean Corpuscular HGB CONC 36.4 g/dL (32.0-36.0); Mean Corpuscular Hemoglobin 35.7 pg (27.0-31.0); Mean Corpuscular Volume 98.3 fl (78.0-98.0); Mean Platelet Volume 6.8 fL (7.4-10.4); Platelet Count 174 10x3/uL (130-400); RBC Distribution Width 11.7 % (11.5-14.5); Red Blood Cell (RBC) Count 3.53 mill/uL (4.70-6.10); White Blood Cell (WBC) Count 7.8 10x3/uL (4.8-10.8)
[2022-06-12 06:39] LABS: Anion Gap 12 mmol/L (10-20); BUN (Urea Nitrogen) 14 mg/dL (8.4-25.7); Calc. Creatinine Clearance 74 mL/min (70-130); Calcium 9.6 mg/dL (7.8-10.44); Carbon Dioxide 21 mmol/L (23-31); Chloride 110 mmol/L (98-107); Estimated GFR 72; Glucose 113 mg/dL (83-110); Magnesium 1.6 mg/dL (1.6-2.6); Potassium 3.3 mmol/L (3.5-5.1); Sodium 140 mmol/L (136-145)
[2022-06-12] MEDS: Losartan 25 MG TAB PO SCH (08:49)
[2022-06-12] MEDS: Polyethylene Glycol 3350 17 GM Packet PO SCH (08:50)
[2022-06-12] MEDS: hydrALAZINE 25 MG TAB PO SCH ×3 (08:50→21:39)
[2022-06-12] MEDS: Senokot S 8.6-50 MG TAB PO SCH ×2 (08:50→21:39)
[2022-06-12] MEDS: Potassium Chloride 20 MEQ TAB PO SCH ×2 (11:51→16:30)
[2022-06-12] MEDS: Diltiazem HCl SR 60 mg Capsule PO SCH (21:38)
[2022-06-12] MEDS: Rosuvastatin 5 MG TAB PO SCH (21:38)
[2022-06-12] MEDS: Finasteride 5 MG TAB PO SCH (21:39)
[2022-06-13] MEDS: Ampicillin 2 GM in Sodium Chloride 0.9% 100 ML IVPB SCH ×4 (02:27→12:53)
[2022-06-13] MEDS: Levothyroxine Sodium 50 MCG TAB PO SCH (06:11)
[2022-06-13 06:15] LABS: #Eosinphils 0.1 thou/uL (0.0-0.7); #Monocytes 1.1 thou/uL (0.11-0.59); %Basophils 0.1 % (0.0-1.0); %Eosinophils 1.4 % (0.0-10.0); %Lymphocytes 19.4 % (21.0-51.0); %Monocytes 10.8 % (0.0-10.0); %Neutrophils 68.2 % (42.0-75.0); Hemoglobin 12.1 g/dL (14.0-18.0); Mean Corpuscular HGB CONC 33.3 g/dL (32.0-36.0); Mean Corpuscular Hemoglobin 32.7 pg (27.0-31.0); Mean Platelet Volume 6.9 fL (7.4-10.4); Platelet Count 189 10x3/uL (130-400); RBC Distribution Width 11.7 % (11.5-14.5); White Blood Cell (WBC) Count 10.3 10x3/uL (4.8-10.8)
[2022-06-13 06:40] LABS: Anion Gap 12 mmol/L (10-20); BUN (Urea Nitrogen) 15 mg/dL (8.4-25.7); Calc. Creatinine Clearance 74 mL/min (70-130); Calcium 9.6 mg/dL (7.8-10.44); Carbon Dioxide 24 mmol/L (23-31); Chloride 108 mmol/L (98-107); Estimated GFR 71; Glucose 102 mg/dL (83-110); Magnesium 1.9 mg/dL (1.6-2.6); Potassium 3.9 mmol/L (3.5-5.1); Sodium 140 mmol/L (136-145)
[2022-06-13] MEDS: Senokot S 8.6-50 MG TAB PO SCH (09:57)
[2022-06-13] MEDS: hydrALAZINE 25 MG TAB PO SCH ×2 (09:57→14:17)
[2022-06-13] MEDS: Losartan 25 MG TAB PO SCH (09:57)
[2022-06-13] MEDS: Polyethylene Glycol 3350 17 GM Packet PO SCH (09:58)
[2022-06-13] MEDS: Acetaminophen 325 MG TAB PO PRN (11:58)
[2022-06-13 12:23] VITALS: TEMP 97.8
[2022-06-13 14:18] VITALS: BP 167/92
== END 2022-06-13 15:15 | DRG 853 ==
LOC: SUATTDRO 04:52 → ERS 04:52 → ERHOLD 10:15 → SURG B 10:15
PROVIDERS: ADMIT Family Medicine; ATTEND Internal Medicine
PROC: 0T778DZ Dilation of Left Ureter with Intraluminal Device, Via Natural or Artificial Opening Endoscopic (ICD-10-PCS; principal; 2022-06-06)
PROC: 3E03329 Introduction of Other Anti-infective into Peripheral Vein, Percutaneous Approach (ICD-10-PCS; 2022-06-06)
PROC: 02HV33Z Insertion of Infusion Device into Superior Vena Cava, Percutaneous Approach (ICD-10-PCS; 2022-06-10)
PROC: B5181ZA Fluoroscopy of Superior Vena Cava using Low Osmolar Contrast, Guidance (ICD-10-PCS; 2022-06-10)
PROC: B548ZZA Ultrasonography of Superior Vena Cava, Guidance (ICD-10-PCS; 2022-06-10)
DX: A41.81 Sepsis due to Enterococcus (principal); G93.41 Metabolic encephalopathy; N13.6 Pyonephrosis; J98.11 Atelectasis; I48.91 Unspecified atrial fibrillation; I10 Essential (primary) hypertension; Z96.642 Presence of left artificial hip joint; E03.9 Hypothyroidism, unspecified; E78.5 Hyperlipidemia, unspecified; K21.9 Gastro-esophageal reflux disease without esophagitis; F03.90 Unspecified dementia, unspecified severity, without behavioral disturbance, psychotic disturbance, mood disturbance, and anxiety; Z79.01 Long term (current) use of anticoagulants; Z87.442 Personal history of urinary calculi; Z87.440 Personal history of urinary (tract) infections; Z79.890 Hormone replacement therapy; Z79.899 Other long term (current) drug therapy; Z90.49 Acquired absence of other specified parts of digestive tract; Z90.89 Acquired absence of other organs; Z87.891 Personal history of nicotine dependence
CPT/HCPCS: 36415; 36416; 36569; 70450; 71045; 74176; 74420; 80048; 80053; 80076; 80202; 81003; 81015; 83036; 83605; 83735; 83880; 84443; 84484; 85025; 87040; 87077; 87086; 87149; 87186; 93306; C1751; C2617; J0290; J0360; J2185; J2704; J3010; J3370; J3370-JW; J3490; J7050; S0028

== ENCOUNTER 2022-06-28 06:28 | Inpatient (IN) | payer MEDICARE ==
[2022-06-28] MEDS ORDERED: Vancomycin 1 GM/200 ML (FROZEN) BAG ONE (08:41)
[2022-06-28] MEDS ORDERED: Levofloxacin 500 mg/D5W 100 ml Premix Bag ONE (09:27)
[2022-06-28] MEDS ORDERED: fentaNYL PF 100 MCG/2 ML SYRINGE ONE (09:43)
[2022-06-28] MEDS ORDERED: PROPOFOL 200 MG/20 ML VIAL ONE (09:46)
[2022-06-28] MEDS ORDERED: Lidocaine 1% PF 5 ML VIAL ONE (09:46)
[2022-06-28] MEDS ORDERED: Ondansetron PF 4 MG/2 ML Vial ONE (09:46)
[2022-06-28] MEDS ORDERED: Dexamethasone 20 MG/5 ML VIAL ONE (09:46)
[2022-06-28] MEDS ORDERED: Rocuronium Bromide 10 MG/ML (10ML VIAL) ONE (09:46)
[2022-06-28] MEDS ORDERED: NEOSTIGMINE 3 MG/3 ML SYR 3 MG/3 ML SYRINGE ONE (09:46)
[2022-06-28] MEDS ORDERED: PHENYLEPHRINE-NS 100 MCG/ML 10 ML SYRINGE ONE (09:46)
[2022-06-28] MEDS ORDERED: Glycopyrrolate 0.2 MG/ML 5 ML SYRINGE ONE (09:46)
[2022-06-28] MEDS ORDERED: Acetaminophen 325 MG TAB PO PRN (11:42)
[2022-06-28] MEDS ORDERED: fentaNYL 50 mcg/mL 1 mL Vial ONE (12:46)
[2022-06-28] MEDS ORDERED: hydrALAZINE 20 MG/ML VIAL ONE (13:20)
[2022-06-28] MEDS ORDERED: Iopamidol 30 ML ONE (15:07)
[2022-06-28] MEDS: D5 1/2 NS w/20 mEq KCL 1,000 ML IV SCH (16:07)
[2022-06-28 17:04] LABS: #Basophils 0.1 thou/uL (0.0-0.2); #Lymphocytes 1.1 thou/uL (1.20-3.40); #Monocytes 0.2 thou/uL (0.11-0.59); %Basophils 0.5 % (0.0-1.0); %Eosinophils 0.3 % (0.0-10.0); %Lymphocytes 8.7 % (21.0-51.0); %Monocytes 1.3 % (0.0-10.0); %Neutrophils 89.3 % (42.0-75.0); Hemoglobin 13.1 g/dL (14.0-18.0); Mean Corpuscular Hemoglobin 33.4 pg (27.0-31.0); Mean Corpuscular Volume 98.1 fl (78.0-98.0); Mean Platelet Volume 6.6 fL (7.4-10.4); Platelet Count 209 10x3/uL (130-400); RBC Distribution Width 12.1 % (11.5-14.5); Red Blood Cell (RBC) Count 3.93 mill/uL (4.70-6.10); White Blood Cell (WBC) Count 12.3 10x3/uL (4.8-10.8)
[2022-06-28 17:24] LABS: Anion Gap 12 mmol/L (10-20); BUN (Urea Nitrogen) 12 mg/dL (8.4-25.7); Calc. Creatinine Clearance 81 mL/min (70-130); Calcium 9.5 mg/dL (7.8-10.44); Carbon Dioxide 23 mmol/L (23-31); Chloride 108 mmol/L (98-107); Estimated GFR 77; Glucose 133 mg/dL (83-110); Magnesium 2.3 mg/dL (1.6-2.6); Potassium 4.1 mmol/L (3.5-5.1); Sodium 139 mmol/L (136-145)
[2022-06-28] MEDS ORDERED: Polyethylene Glycol 3350 17 GM Packet PO PRN (18:18)
[2022-06-28] MEDS ORDERED: hydrALAZINE 25 MG TAB PO PRN (18:30)
[2022-06-28] MEDS: Rosuvastatin 5 MG TAB PO SCH (21:40)
[2022-06-28] MEDS: Finasteride 5 MG TAB PO SCH (21:41)
[2022-06-28] MEDS: Senokot S 8.6-50 MG TAB PO SCH (21:41)
[2022-06-29] MEDS: D5 1/2 NS w/20 mEq KCL 1,000 ML IV SCH ×3 (01:07→17:27)
[2022-06-29] MEDS: Levothyroxine Sodium 50 MCG TAB PO SCH (06:21)
[2022-06-29] MEDS: Multivit, Therapeutic 1 TAB PO SCH (09:22)
[2022-06-29] MEDS: Senokot S 8.6-50 MG TAB PO SCH ×2 (09:22→21:41)
[2022-06-29] MEDS: Vancomycin 1.5 GRAM/300 ML BAG 1.5 GM in Premix Bag 1 BAG IVPB SCH (09:23)
[2022-06-29] MEDS: Folic Acid 1 MG TAB PO SCH (09:23)
[2022-06-29 17:19] VITALS: BMI 30.2
[2022-06-29] MEDS: Rosuvastatin 5 MG TAB PO SCH (21:41)
[2022-06-29] MEDS: Finasteride 5 MG TAB PO SCH (21:41)
[2022-06-30] MEDS: D5 1/2 NS w/20 mEq KCL 1,000 ML IV SCH (03:57)
[2022-06-30] MEDS: Levothyroxine Sodium 50 MCG TAB PO SCH (05:22)
[2022-06-30 06:31] VITALS: TEMP 98.4
[2022-06-30 06:52] LABS: #Lymphocytes 2.4 thou/uL (1.20-3.40); #Monocytes 0.9 thou/uL (0.11-0.59); #Neutrophils 6.2 thou/uL (1.40-6.50); %Basophils 0.2 % (0.0-1.0); %Eosinophils 0.5 % (0.0-10.0); %Lymphocytes 24.9 % (21.0-51.0); %Monocytes 9.5 % (0.0-10.0); Hemoglobin 11.7 g/dL (14.0-18.0); Mean Corpuscular HGB CONC 35.1 g/dL (32.0-36.0); Mean Corpuscular Hemoglobin 34.6 pg (27.0-31.0); Mean Corpuscular Volume 98.6 fl (78.0-98.0); Mean Platelet Volume 6.8 fL (7.4-10.4); Platelet Count 176 10x3/uL (130-400); RBC Distribution Width 11.9 % (11.5-14.5); Red Blood Cell (RBC) Count 3.39 mill/uL (4.70-6.10); White Blood Cell (WBC) Count 9.5 10x3/uL (4.8-10.8)
[2022-06-30 07:02] LABS: Anion Gap 11 mmol/L (10-20); BUN (Urea Nitrogen) 14 mg/dL (8.4-25.7); Calc. Creatinine Clearance 77 mL/min (70-130); Carbon Dioxide 22 mmol/L (23-31); Chloride 111 mmol/L (98-107); Estimated GFR 70; Glucose 109 mg/dL (83-110); Potassium 3.9 mmol/L (3.5-5.1); Sodium 140 mmol/L (136-145)
[2022-06-30 07:06] LABS: Vancomycin, Trough 7.6 ug/mL
[2022-06-30 07:18] VITALS: BP 169/78
[2022-06-30] MEDS: Senokot S 8.6-50 MG TAB PO SCH (08:41)
[2022-06-30] MEDS: Multivit, Therapeutic 1 TAB PO SCH (08:42)
[2022-06-30] MEDS: Vancomycin 1.5 GRAM/300 ML BAG 1.5 GM in Premix Bag 1 BAG IVPB SCH (08:42)
[2022-06-30] MEDS: Folic Acid 1 MG TAB PO SCH (08:42)
[2022-07-04 15:13] LABS: CA Oxalate Dihydrate 30 % (.); CA Oxalate Monohydrate 50 % (.); Color Brown (.); Stone Weight 106 mg (.)
== END 2022-06-30 13:19 | disposition home or self-care (01) | DRG 661 ==
LOC: SDC 06:28 → T4-B 14:52
PROVIDERS: ADMIT Urology; ATTEND Urology
PROC: 0T778DZ Dilation of Left Ureter with Intraluminal Device, Via Natural or Artificial Opening Endoscopic (ICD-10-PCS; principal; 2022-06-28)
PROC: 0TCB8ZZ Extirpation of Matter from Bladder, Via Natural or Artificial Opening Endoscopic (ICD-10-PCS; 2022-06-28)
PROC: BT1FZZZ Fluoroscopy of Left Kidney, Ureter and Bladder (ICD-10-PCS; 2022-06-28)
PROC: 0T9B80Z Drainage of Bladder with Drainage Device, Via Natural or Artificial Opening Endoscopic (ICD-10-PCS; 2022-06-28)
DX: N13.9 Obstructive and reflux uropathy, unspecified (principal); N20.0 Calculus of kidney; N21.0 Calculus in bladder; N20.1 Calculus of ureter; I48.0 Paroxysmal atrial fibrillation; R31.0 Gross hematuria; E03.9 Hypothyroidism, unspecified; E78.5 Hyperlipidemia, unspecified; K21.9 Gastro-esophageal reflux disease without esophagitis; N18.2 Chronic kidney disease, stage 2 (mild); D63.1 Anemia in chronic kidney disease; Z79.890 Hormone replacement therapy; Z79.899 Other long term (current) drug therapy
CPT/HCPCS: 36415; 74420; 80048; 80202; 82365; 83735; 85025; 88300; C1747; J0360; J1100; J1956; J2405; J2704; J3010; J3370; J3370-JW; J3480; Q9967

== ENCOUNTER 2023-02-27 15:34 | Inpatient (IN) | payer MEDICARE ==
[2023-02-27 16:26] LABS: #Monocytes 0.8 thou/uL (0.11-0.59); #Neutrophils 9.5 thou/uL (1.40-6.50); %Basophils 0.2 % (0.0-1.0); %Lymphocytes 11.2 % (21.0-51.0); %Monocytes 6.9 % (0.0-10.0); %Neutrophils 81.3 % (42.0-75.0); Hematocrit 40.1 % (42.0-52.0); Hemoglobin 13.8 g/dL (14.0-18.0); Mean Corpuscular HGB CONC 34.4 g/dL (32.0-36.0); Mean Corpuscular Hemoglobin 32.9 pg (27.0-31.0); Mean Corpuscular Volume 95.5 fl (78.0-98.0); Mean Platelet Volume 9.3 fL (7.4-10.4); Platelet Count 183 10x3/uL (130-400); RBC Distribution Width 12.8 % (11.5-14.5); White Blood Cell (WBC) Count 11.7 10x3/uL (4.8-10.8)
[2023-02-27 16:42] LABS: ALT (SGPT) 12 U/L (8-55); AST (SGOT) 18 U/L (5-34); Albumin 3.9 g/dL (3.4-4.8); Alkaline Phosphatase 57 U/L (40-110); Anion Gap 13 mmol/L (10-20); BUN (Urea Nitrogen) 15 mg/dL (8.4-25.7); Bilirubin, Total 0.6 mg/dL (0.2-1.2); Calc. Creatinine Clearance 0 mL/min (70-130); Calcium 9.6 mg/dL (7.8-10.44); Carbon Dioxide 23 mmol/L (23-31); Chloride 107 mmol/L (98-107); Estimated GFR 55; Globulin 2.3 g/dL (2.4-3.5); Glucose 107 mg/dL (83-110); Potassium 4.1 mmol/L (3.5-5.1); Protein, Total 6.2 g/dL (5.8-8.1); Sodium 139 mmol/L (136-145)
[2023-02-27 16:45] LABS: Troponin I Less than 0.010 ng/mL (< 0.028)
[2023-02-27] MEDS ORDERED: Senokot S 8.6-50 MG TAB PO PRN (19:36)
[2023-02-27 22:38] VITALS: BMI 27.7
[2023-02-27 23:49] LABS: Troponin I Less than 0.010 ng/mL (< 0.028)
[2023-02-28 01:27] LABS: Bilirubin Negative (Negative); Blood, Urine 1+ (Negative); CAUTI Indications for Culture Alt mental st,lethar; Clarity Turbid (Clear); Glucose, Urine (Dipstick) Normal (Negative); Ketone, Urine Negative (Negative); Leukocyte 75 Leu/uL (Negative); Nitrite Negative (Negative); Protein, Urine (Dipstick) Negative (Neg-Trace); RBC/HPF 21-50 HPF (0-3); Specific Gravity, Urine 1.014 (1.002-1.036); Squamous Epithelial 0-3 HPF (0-3); Urobilinogen Normal mg/dL (Less than 2); WBC/HPF 21-50 HPF (0-3)
[2023-02-28 01:29] LABS: Bacteria/HPF 1+ HPF (None Seen)
[2023-02-28 01:31] LABS: Urine Culture Reflex Yes Yes
[2023-02-28 02:40] LABS: #Eosinphils 0.1 thou/uL (0.0-0.7); #Monocytes 1.2 thou/uL (0.11-0.59); #Neutrophils 6.8 thou/uL (1.40-6.50); %Basophils 0.3 % (0.0-1.0); %Eosinophils 0.5 % (0.0-10.0); %Lymphocytes 23.7 % (21.0-51.0); %Monocytes 11.5 % (0.0-10.0); %Neutrophils 63.7 % (42.0-75.0); Hematocrit 36.7 % (42.0-52.0); Hemoglobin 13.2 g/dL (14.0-18.0); Mean Corpuscular Hemoglobin 33.1 pg (27.0-31.0); Mean Platelet Volume 9.3 fL (7.4-10.4); Platelet Count 193 10x3/uL (130-400); RBC Distribution Width 12.7 % (11.5-14.5); Red Blood Cell (RBC) Count 3.99 mill/uL (4.70-6.10); White Blood Cell (WBC) Count 10.7 10x3/uL (4.8-10.8)
[2023-02-28 02:59] LABS: Troponin I Less than 0.010 ng/mL (< 0.028)
[2023-02-28 04:05] LABS: ALT (SGPT) 10 U/L (8-55); AST (SGOT) 17 U/L (5-34); Albumin 3.4 g/dL (3.4-4.8); Alkaline Phosphatase 52 U/L (40-110); Anion Gap 13 mmol/L (10-20); BUN (Urea Nitrogen) 14 mg/dL (8.4-25.7); Bilirubin, Total 0.7 mg/dL (0.2-1.2); Calc. Creatinine Clearance 69 mL/min (70-130); Calcium 9.3 mg/dL (7.8-10.44); Carbon Dioxide 20 mmol/L (23-31); Chloride 108 mmol/L (98-107); Estimated GFR 69; Globulin 2.4 g/dL (2.4-3.5); Glucose 100 mg/dL (83-110); Potassium 3.7 mmol/L (3.5-5.1); Protein, Total 5.8 g/dL (5.8-8.1); Sodium 137 mmol/L (136-145)
[2023-02-28] MEDS: cefTRIAXone\\ROCEPHIN 1 GM in Sodium Chloride 0.9% 100 ML IVPB SCH (05:14)
[2023-02-28] MEDS: Levothyroxine Sodium 50 MCG TAB PO SCH (05:14)
[2023-02-28] MEDS: Donepezil HCl 10 MG TAB PO SCH (08:37)
[2023-02-28] MEDS: dilTIAZem ER 60 MG CAP PO SCH (08:37)
[2023-02-28] MEDS: Acetaminophen 325 MG TAB PO PRN ×2 (16:21→21:43)
[2023-02-28] MEDS: Rosuvastatin 5 MG TAB PO SCH (21:43)
[2023-02-28] MEDS: Finasteride 5 MG TAB PO SCH (21:43)
[2023-03-01] MEDS: cefTRIAXone\\ROCEPHIN 1 GM in Sodium Chloride 0.9% 100 ML IVPB SCH (03:43)
[2023-03-01] MEDS: Levothyroxine Sodium 50 MCG TAB PO SCH (05:32)
[2023-03-01] MEDS: Acetaminophen 325 MG TAB PO PRN ×2 (05:33→20:42)
[2023-03-01] MEDS: dilTIAZem ER 60 MG CAP PO SCH (09:16)
[2023-03-01] MEDS: Donepezil HCl 10 MG TAB PO SCH (09:16)
[2023-03-01] MEDS: LevoFLOXacin 750 mg/D5W 750 MG in Premix 1 BAG IVPB SCH (15:58)
[2023-03-01] MEDS ORDERED: hydrALAZINE 25 MG TAB PO SCH (17:00)
[2023-03-01] MEDS: Rosuvastatin 5 MG TAB PO SCH (20:41)
[2023-03-01] MEDS: Finasteride 5 MG TAB PO SCH (20:41)
[2023-03-01] MEDS: hydrALAZINE 25 MG TAB PO SCH (20:42)
[2023-03-02] MEDS: cefTRIAXone\\ROCEPHIN 1 GM in Sodium Chloride 0.9% 100 ML IVPB SCH (03:58)
[2023-03-02] MEDS: Acetaminophen 325 MG TAB PO PRN ×2 (04:13→14:57)
[2023-03-02] MEDS: Levothyroxine Sodium 50 MCG TAB PO SCH (04:55)
[2023-03-02] MEDS: hydrALAZINE 25 MG TAB PO SCH ×2 (10:27→14:53)
[2023-03-02] MEDS: Donepezil HCl 10 MG TAB PO SCH (10:27)
[2023-03-02] MEDS: dilTIAZem ER 60 MG CAP PO SCH (10:30)
[2023-03-02 12:12] VITALS: TEMP 98.5
[2023-03-02] MEDS: LevoFLOXacin 750 mg/D5W 750 MG in Premix 1 BAG IVPB SCH (14:48)
[2023-03-02 14:53] VITALS: BP 137/69
== END 2023-03-02 17:08 | disposition home health service (06) | DRG 690 ==
LOC: ERS 15:34 → ERHOLD 18:15 → 2NO 21:32 → OBSVTOIN 02-28 14:59
PROVIDERS: ADMIT Family Medicine; ATTEND Internal Medicine
DX: N30.00 Acute cystitis without hematuria (principal); E78.5 Hyperlipidemia, unspecified; I48.91 Unspecified atrial fibrillation; E03.9 Hypothyroidism, unspecified; F03.90 Unspecified dementia, unspecified severity, without behavioral disturbance, psychotic disturbance, mood disturbance, and anxiety; K21.9 Gastro-esophageal reflux disease without esophagitis; S01.91XA Laceration without foreign body of unspecified part of head, initial encounter; E78.00 Pure hypercholesterolemia, unspecified; N20.0 Calculus of kidney; Z96.642 Presence of left artificial hip joint; I10 Essential (primary) hypertension; Z79.890 Hormone replacement therapy; Z79.899 Other long term (current) drug therapy; Z98.890 Other specified postprocedural states; Z90.49 Acquired absence of other specified parts of digestive tract; Z90.89 Acquired absence of other organs; Z87.891 Personal history of nicotine dependence; Z79.01 Long term (current) use of anticoagulants; W19.XXXA Unspecified fall, initial encounter
CPT/HCPCS: 36415; 70450; 70551; 71045; 72125; 74176; 80053; 81001; 83880; 84484; 85025; 85730; 87077; 87086; 93005; 93306; 93880; J0696; J1956; J3490